=== PATIENT | male | born 1970 | race Caucasian/White ===

== ENCOUNTER 2019-11-11 07:20 | Inpatient (IN) | payer BC ==
[2019-11-11] MEDS ORDERED: NALOXONE 0.4 MG/ML 1 ML VIAL IV PRN (07:26)
[2019-11-11 07:32] LABS: Glucose,Whole Blood 244 mg/dL (75-99)
--- NOTE | 2019-11-11 07:33 | ED ---
General Adult HPI - General Chief complaint: Chest Pain Stated complaint: stemi Time Seen by Provider: 11/11/19 07:25 Source: patient, EMS, RN notes reviewed, old records reviewed Mode of arrival: EMS Limitations: no limitations - History of Present Illness Initial comments: 49-year-old male history of hypertension presenting for evaluation of chest inez n. Patient was at work this morning, he developed central chest pressure that radiated into his left arm. Associated dyspnea, diaphoresis and nausea. Patient was transported by EMS given aspirin and nitroglycerin prior to arrival. Patient has no previous history of CAD. He states that yesterday he did have an episode of chest pressure that lasted only a few minutes and resolved with rest. - Related Data Allergies Allergy/AdvReac Type Severity Reaction Status Date / Time No Known Allergies Allergy Verified 11/11/19 07:21 Review of Systems ROS Statement: Those systems with pertinent positive or pertinent negative responses have been documented in the HPI. ROS Other: All systems not noted in ROS Statement are negative. Past Medical History Past Medical History: Hypertension History of Any Multi-Drug Resistant Organisms: None Reported Past Surgical History: No Surgical Hx Reported Past Psychological History: No Psychological Hx Reported Smoking Status: Current every day smoker Past Alcohol Use History: None Reported Past Drug Use History: Marijuana General Exam Limitations: no limitations General appearance: alert, anxious Head exam: Present: atraumatic, normocephalic Eye exam: Present: normal appearance, PERRL ENT exam: Present: normal exam Neck exam: Present: normal inspection. Absent: tenderness, meningismus Respiratory exam: Present: normal lung sounds bilaterally. Absent: respiratory distress, wheezes Cardiovascular Exam: Present: regular rate, normal rhythm GI/Abdominal exam: Present: soft. Absent: distended, tenderness, guarding Extremities exam: Present: normal inspection, other (Distal pulses intact) Back exam: Present: normal inspection, full ROM Neurological exam: Present: alert, oriented X3, CN II-XII intact. Absent: motor sensory deficit Psychiatric exam: Present: normal affect, normal mood Skin exam: Present: warm, intact, diaphoretic. Absent: cyanosis Course Vital Signs 11/11/19 07:21 Temperature 98.6 F Pulse Rate 80 Respiratory 18 Rate Blood Pressure 188/102 O2 Sat by Pulse 93 L Oximetry EKG Findings - EKG Comments: EKG Findings:: EKG: Normal sinus rhythm, ST segment elevation in lead 3 and aVF, ST segment depression in aVL, rate of 80, CO interval 164, QRS duration 108, QTC 500, ST segment elevated NE Medical Decision Making - Medical Decision Making 49-year-old male with typical chest pain, EKG showing ST segment elevation in the inferior leads with reciprocal change. clinical genetics laboratory chief is activated. Case is discussed with Dr. Haq, Dr. Will, and Dr. Valero. Patient given aspirin and nitroglycerin by EMS, further nitroglycerin will be held, patient given heparin and statin in the emergency department. He is taken urgently to the [facility]. Chest x-ray pending, laboratory testing pending. Disposition Clinical Impression: ST elevation myocardial infarction (STEMI) Disposition: ADMITTED IP TO THIS HOSP Condition: Serious Is patient prescribed a controlled substance at d/c from ED?: No Referrals: Raj Valero MD [Primary Care Provider] - 1-2 days Decision to Admit Reason: Admit from EC Decision Date: 11/11/19 Decision Time: 07:33
[2019-11-11 07:37] LABS: Basophils # (A) 0.1 k/uL (0-0.2); Basophils % (A) 1 %; Eosinophils # (A) 0.5 k/uL (0-0.7); Eosinophils % (A) 4 %; HCT 51.2 % (39.0-53.0); HGB 16.6 gm/dL (13.0-17.5); Lymphocytes # (A) 2.5 k/uL (1.0-4.8); Lymphocytes % (A) 21 %; MCH 29.3 pg (25.0-35.0); MCHC 32.4 g/dL (31.0-37.0); MCV 90.3 fL (80.0-100.0); Monocytes # (A) 0.4 k/uL (0-1.0); Monocytes % (A) 4 %; Neutrophils # (A) 8.1 k/uL (1.3-7.7); Neutrophils % (A) 69 %; Platelet Count 285 k/uL (150-450); RBC 5.67 m/uL (4.30-5.90); RDW 13.6 % (11.5-15.5); WBC 11.7 k/uL (3.8-10.6)
[2019-11-11] MEDS ORDERED: IV FLUID CONTINUATION 950 ML IV ONE (07:39)
[2019-11-11 07:45] LABS: ALT 19 U/L (4-49); AST 22 U/L (17-59); African American GFR (CKD) >90 (>60 ml/min/1.73 sqM); Alkaline Phosphatase 106 U/L (38-126); Anion Gap 10 mmol/L; Blood Urea Nitrogen 10 mg/dL (9-20); Calcium 9.1 mg/dL (8.4-10.2); Carbon Dioxide 23 mmol/L (22-30); Chloride 105 mmol/L (98-107); Glucose 239 mg/dL (74-99); Non-African American GFR(CKD) >90 (>60 ml/min/1.73 sqM); Potassium 3.9 mmol/L (3.5-5.1); Sodium 138 mmol/L (137-145); Total Bilirubin 0.5 mg/dL (0.2-1.3); Total Protein 7.3 g/dL (6.3-8.2)
--- NOTE | 2019-11-11 07:46 | XR ---
EXAMINATION TYPE: XR chest 1V portable DATE OF EXAM: 11/11/2019 CLINICAL HISTORY: Chest pain and left arm numbness. TECHNIQUE: Single portable Frontal view of the chest is obtained. COMPARISON: chest x-ray September 02, 2012. FINDINGS: Current study is slightly suboptimal as does not include entire right lung base. There is some chronic parenchymal changes bilaterally without suspicious focal air space opacity, pleural effu jose, or pneumothorax seen. The cardiac silhouette size is mildly enlarged. The osseous structures are intact. Overlying EKG leads are redemonstrated. IMPRESSION: Chronic changes and mild cardiomegaly without new acute pulmonary process.
[2019-11-11 07:48] LABS: INR 0.9 (<1.2); Partial Thromboplastin Time 23.1 sec (22.0-30.0); Prothrombin Time 9.6 sec (9.0-12.0)
[2019-11-11] MEDS ORDERED: fentaNYL (PF) 50 MCG/ML 2 ML AMP IV ONE (07:52)
[2019-11-11] MEDS: MIDAZOLAM 2 MG/2 ML VIAL IV ONE ×2 (07:52→08:49)
[2019-11-11] MEDS ORDERED: LIDOCAINE 1% INJ 10MG/ML (20 ML MDV) SQ ONE (07:53)
[2019-11-11] MEDS ORDERED: NITROGLYCERIN OINT 1 INCH/GM PACKET TOPICAL ONE (07:57)
[2019-11-11] MEDS ORDERED: BIVALIRUDIN BOLUS 250 MG/50 ML IV ONE (08:01)
[2019-11-11] MEDS ORDERED: TICAGRELOR 90 MG TAB PO ONE (08:02)
[2019-11-11] MEDS ORDERED: BIVALIRUDIN 250 MG in SODIUM CHLORIDE 0.9% 50 ML IV ONE ×2 (08:02→08:29)
[2019-11-11 08:09] LABS: Creatine Kinase MB 1.3 ng/mL (0.0-2.4); Troponin I 0.017 ng/mL (0.000-0.034)
[2019-11-11] MEDS ORDERED: IOPAMIDOL-370 125ML BTL INJ ONE (08:13)
[2019-11-11] MEDS ORDERED: METOPROLOL TARTRATE 5 MG/5 ML VIAL IVP ONE ×2 (08:14→08:56)
[2019-11-11] MEDS ORDERED: HEPARIN SODIUM,PORCINE 5,000 UNIT/ML 1 ML VIAL IV STA (08:19)
[2019-11-11] MEDS ORDERED: ATORVASTATIN 80 MG TAB PO STA (08:19)
[2019-11-11] MEDS ORDERED: NITROGLYCERIN 1000MCG/10ML SYRINGE INTRACORON ONE (08:49)
[2019-11-11] MEDS ORDERED: IOPAMIDOL-370 100ML BTL INJ ONE (08:59)
[2019-11-11] MEDS ORDERED: ATROPINE SULFATE 0.1 MG/ML 10ML SYRINGE IV PRN (09:23)
[2019-11-11] MEDS ORDERED: MAG HYDROX/AL HYDROX/SIMETH 30 ML CUP PO PRN (09:23)
[2019-11-11] MEDS ORDERED: NITROGLYCERIN SL TABS 0.4 MG TAB SUBLINGUAL PRN (09:23)
[2019-11-11] MEDS ORDERED: RX INFO: IV CONTRAST WAS GIVEN 1 EACH MISC MISCELLANE PRN (09:23)
[2019-11-11] MEDS ORDERED: ZOLPIDEM 5 MG TAB PO PRN (09:23)
[2019-11-11] MEDS ORDERED: SODIUM CHLORIDE 0.9% 1,000 ML IV SCH (09:30)
[2019-11-11 09:42] LABS: Glucose,Whole Blood 206 mg/dL (75-99)
[2019-11-11] MEDS: METOPROLOL TARTRATE 25 MG TAB PO SCH ×2 (10:23→20:06)
--- NOTE | 2019-11-11 12:29 | CONS ---
CONSULTATION CHIEF COMPLAINT: Chest pain. Jose is a 49-year-old gentleman with history of hypertension and family history of premature coronary artery disease, who presents to hospital complaining of chest pain. Chest discomfort started around 6:30 this morning when he went to work . Describes it as mild to moderate pressure with bilateral arm pain. He had chest pain and arm pain yesterday that resolved spontaneously. 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 EKG shows ST-segment elevation in the inferior leads with T-wave inversion in 1 and aVL. PAST MEDICAL HISTORY: Significant for hypertension, he takes antihypertensive I do not have a list. ALLERGIES: None. FAMILY HISTORY: Significant for coronary artery disease. SOCIAL HISTORY: Negative for smoking. He smokes marijuana. REVIEW OF SYSTEMS: HEENT is unremarkable. Cardiac as above. Respiratory as described above. GI negative. Genitourinary negative. Musculoskeletal negative. Endocrine and blood: Negative. 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 Rest of the system review is not relevant. EXAM: Is comfortable at rest vital signs is stable. Head negative. carotid upstroke is normal. There is no bruit. Chest exam reveals good air entry bilaterally, heart exam reveals first and second heart sounds. No gallop. No murmur. No rub. Abdomen is soft. Exam of extremities did not reveal any edema peripheral pulses were felt. Labs are pending at this time. ASSESSMENT: Acute inferior wall myocardial infarction. PLAN: Patient will undergo emergent cardiac catheterization with a view to performing angioplasty. MMODL / IJN: [id number] /
--- NOTE | 2019-11-11 13:11 | PTCA ---
PERCUTANEOUSTRANS CORORONARY ANGIOGRAPHY Mr. Andre is a 49-year-old male with history of hypertension, chronic tobacco use, who presented with symptoms of chest discomfort and ST elevation inferiorly, underwent cardiac catheterization by Dr. Haq, was found to have a subtotally occluded mid RCA that is codominant and small in caliber. In view of that, recommendation was made regarding angioplasty and stenting. The procedures, risks, and complications were discussed with the patient who is in full understanding and agreement. PROCEDURE DETAILS: A 6-Liberian FR4 guiding catheter was introduced into the system. After cannulating stenting the right coronary ostium, multiple attempts to cross the lesion using a 0.014 balanced medium weight J-wire, 0.014 Whisper J-wire and a 0.014 run-through wire with the use of a super cross straight catheter were unsuccessful. The lesion is quite tortuous and appears to be a chronic lesion. At that time, the guiding catheter and the wire were removed and a 6-Liberian FL 4.5 guiding catheter introduced into the system. After cannulating the left circumflex, a 0.014 balanced medium weight J-wire was advanced distally and 4.0 x 23 mm Xience Paula stent was deployed. It was dilated at 16 atmospheres. Following that, a 4.0 x 15 mm NC Emerge balloon was advanced. 1 inflation at 14 atmospheres was done. After the last inflation, after appropriate wait, the balloon and the guidewire were withdrawn back in the guiding catheter. Images were obtained and repeated. Those images reveal stable successful stenting. At that point, the guiding catheter, the balloon and the guidewire removed. The sheath was sutured in place. The patient was returned to his room in stable condition. Of note, the patient had no chest discomfort or arm discomfort at the end of the procedure. He received Angiomax per protocol as well as oral loading dose of Brilinta. RESULTS: 1. Successful stenting of the distal left circumflex with reduction of stenosis from 70% to 0%. 2. Inability to recannulize a subtotally occluded right coronary artery that could be a chronic lesion. RECOMMENDATIONS: Patient will be continued on aspirin, Brilinta, beta blockers, timothy inhibitors and statin. If he remains in atrial fibrillation, the Brilinta will be switched to Plavix. Of note, the patient had significant peripheral vascular disease in the common femoral artery. Duration of procedure is 77 minutes. MMODL / IJN: [id number] / MTDD
--- NOTE | 2019-11-11 14:44 | CC ---
CARDIAC CATHETERIZATION REPORT INDICATION: Acute inferior wall myocardial infarction. PROCEDURE NOTE: After obtaining informed consent, left heart catheterization and coronary angiogram were performed via the right femoral artery using standard Aaron catheters. Patient tolerated the procedure well without any obvious immediate complications. The patient received moderate conscious sedation. Total sedation time was 8 minutes. FINDINGS: 1. Central aortic pressure is 160/70 mm. 2. Left ventriculogram has not been performed. ANGIOGRAPHIC DATA: LEFT MAIN CORONARY ARTERY: Left main coronary artery is a short vessel. It trifurcates into ramus intermedius, LAD and circumflex coronary artery. LAD and the ramus intermedius are free of significant disease. CIRCUMFLEX CORONARY ARTERY: The circumflex coronary artery has a distal 70% stenosis., RIGHT CORONARY ARTERY: Right coronary artery is a codominant vessel and is subtotally occluded in its midportion. CONCLUSIONS: Two vessel coronary artery disease as described above. The right coronary artery is a vessel responsible for the myocardial infarction. PLAN: Patient will undergo emergent angioplasty of the same by the on-call vice president of advertising. MMODL / IJN: [id number] /
[2019-11-11] MEDS ORDERED: LISINOPRIL 5 MG TAB PO SCH (17:30)
[2019-11-11] MEDS: TICAGRELOR 90 MG TAB PO SCH (20:06)
[2019-11-11] MEDS: ATORVASTATIN 80 MG TAB PO SCH (20:06)
[2019-11-12 04:11] LABS: Hemoglobin A1C 7.6 % (4.0-6.0)
[2019-11-12 05:11] LABS: Basophils # (A) 0.1 k/uL (0-0.2); Basophils % (A) 1 %; Eosinophils # (A) 0.3 k/uL (0-0.7); Eosinophils % (A) 2 %; HCT 43.9 % (39.0-53.0); HGB 14.4 gm/dL (13.0-17.5); Lymphocytes # (A) 2.8 k/uL (1.0-4.8); Lymphocytes % (A) 21 %; MCH 29.9 pg (25.0-35.0); MCHC 32.9 g/dL (31.0-37.0); Mean Platelet Volume 7.1; Monocytes # (A) 0.5 k/uL (0-1.0); Monocytes % (A) 4 %; Neutrophils # (A) 9.5 k/uL (1.3-7.7); Neutrophils % (A) 72 %; Platelet Count 260 k/uL (150-450); RBC 4.83 m/uL (4.30-5.90); RDW 13.6 % (11.5-15.5); WBC 13.3 k/uL (3.8-10.6)
[2019-11-12 05:22] LABS: African American GFR (CKD) >90 (>60 ml/min/1.73 sqM); Anion Gap 5 mmol/L; Blood Urea Nitrogen 11 mg/dL (9-20); Calcium 8.3 mg/dL (8.4-10.2); Carbon Dioxide 24 mmol/L (22-30); Chloride 108 mmol/L (98-107); Cholesterol 135 mg/dL (<200); Glucose 144 mg/dL (74-99); HDL Cholesterol 28 mg/dL (40-60); LDL Cholesterol,Calculated 88 mg/dL (0-99); Non-African American GFR(CKD) >90 (>60 ml/min/1.73 sqM); Sodium 137 mmol/L (137-145); Triglycerides 97 mg/dL (<150)
--- NOTE | 2019-11-12 08:41 | HP ---
HISTORY AND PHYSICAL DATE OF SERVICE: 11/11/2019 A 49-year-old white male came in today with chest pain, worsening at work to the point he almost passed out. EMS was called, brought to the hospital. He continues to smoke multiple cigarettes. He is obese. He has hypertension, controlled. He was found to have possible ST elevation in the inferior leads and T-wave inversion in 1 aVL. He had a stent placed in the RCA. He is in ICU stable at this time. Smoking cessation counseling. Weight loss counseling given. PAST MEDICAL HISTORY: Hypertension. ALLERGIES: None. FAMILY HISTORY: Heart disease. Smokes marijuana. REVIEW OF SYSTEMS: Fourteen-point review of systems negative except for mentioned in HPI. Vital signs reviewed. CARDIOVASCULAR S1-S2. LUNGS mild wheeze. ENDOCRINE: BMI is over 40. HEMATOLOGY: Negative Homans. PSYCH: Fair mood and affect. NEUROLOGIC: Alert and orient x3. ASSESSMENT AND PLAN: 1. Status post STEMI, RCA, PTCA done to the right coronary artery. He continues to improve. 2. Smoking cessation. 3. Hypertension. 4. Medications, statins, Plavix and aspirin. 5. Possible discharge home tomorrow. ICU time 30 minutes. MMODL / IJN: [id number] /
[2019-11-12] MEDS ORDERED: LISINOPRIL 5 MG TAB PO SCH (09:00)
[2019-11-12] MEDS: ASPIRIN 81 MG PO SCH (09:03)
[2019-11-12] MEDS: METOPROLOL TARTRATE 25 MG TAB PO SCH ×2 (09:03→21:05)
[2019-11-12] MEDS: TICAGRELOR 90 MG TAB PO SCH ×2 (09:03→21:06)
[2019-11-12] MEDS: amLODIPine 10 MG TAB PO SCH (09:03)
[2019-11-12] MEDS: LISINOPRIL 10 MG TAB PO SCH ×2 (09:03→21:05)
--- NOTE | 2019-11-12 09:33 | ECHOF ---
Referral Reason:mi MEASUREMENTS -------- HEIGHT: 180.3 cm WEIGHT: 142.9 kg BP: IVSd: 1.7 cm (0.6 - 1.1) LVIDd: 5.3 cm (3.9 - 5.3) LVPWd: 1.6 cm (0.6 - 1.1) IVSs: 2.4 cm LVIDs: 3.9 cm LVPWs: 2.1 cm Ao Diam: 3.8 cm (2.0 - 3.7) AV Cusp: 2.3 cm (1.5 - 2.6) LA Diam: 3.2 cm (2.7 - 3.8) MV EXCURSION: 19.089 mm (> 18.000) MV EF SLOPE: 84 mm/s (70 - 150) EPSS: 2.0 cm MV E Mani: 0.59 m/s MV DecT: 197 ms MV A Mani: 0.68 m/s MV E/A Ratio: 0.86 RAP: 5.00 mmHg RVSP: 10.41 mmHg FINDINGS -------- Sinus rhythm. This was a technically difficult study with suboptimal views. The left ventricular size is normal. There is moderate concentric left ventricular hypertrophy. O verall left ventricular systolic function is low-normal with, an EF between 50 - 55 %. The right ventricle is normal in size. The left atrial size is normal. The right atrial size is normal. 5.0mg of Lumason was utilized for enhancement of images The aortic valve is trileaflet and appears structurally normal. The mitral valve is normal. There is trace mitral regurgitation. The tricuspid valve appears structurally normal. Trace tricuspid regurgitation present. Right norberto tricular systolic pressure is normal at < 35 mmHg. There is no pulmonic regurgitation present. CONCLUSIONS -------- 1. Sinus rhythm. 2. This was a technically difficult study with suboptimal views. 3. The left ventricular size is normal. 4. There is moderate concentric left ventricular hypertrophy. 5. Overall left ventricular systolic function is low-normal with, an EF between 50 - 55 %. 6. The right ventricle is normal in size. 7. The left atrial size is normal. 8. The right atrial size is normal. 9. 5.0mg of Lumason was utilized for enhancement of images 10. The aortic valve is trileaflet and appears structurally normal. 11. The mitral valve is normal. 12. There is trace mitral regurgitation. 13. The tricuspid valve appears structurally normal. 14. Trace tricuspid regurgitation present. 15. Right ventricular systolic pressure is normal at < 35 mmHg. 16. There is no pulmonic regurgitation present. INFORMATION SECURITY: Iris Claudio RDCS
--- NOTE | 2019-11-12 10:58 | PN ---
PROGRESS NOTE Wesley is a 49-year-old gentleman who is admitted to hospital with acute myocardial infarction, underwent cardiac catheterization, emergent angioplasty of the circumflex coronary artery. We were unsuccessful in doing angioplasty of the subtotally occluded mid RCA. Echocardiogram on him shows normal LV systolic function with an ejection fraction of 50-55 percent. The peak troponin was 6.2. This morning, patient is doing well and is free of symptoms. He is afebrile. Heart rate is 78 beats per minute. Blood pressure is elevated at 169/109, respiratory rate is 18. Chest exam reveals good air entry bilaterally. Heart exam reveals first and second heart sounds. No gallop. Abdomen is soft. Exam of extremities did not reveal any edema. Peripheral pulses are felt. ASSESSMENT: 1. Acute myocardial infarction status post catheterization and angioplasty. 2. Severe uncontrolled hypertension. PLAN: I am resuming Norvasc 10 mg daily. Continue the Lopressor, aspirin, Lipitor, and Brilinta. The patient had a transient episode of atrial fibrillation yesterday. I am also increasing the dose of Zestril to 10 b.i.d. With all this, if the blood pressure is not better controlled, I am going to add hydralazine. MMODL / IJN: [id number] /
[2019-11-12] MEDS: hydrALAZINE HCL 25 MG TAB PO SCH ×2 (15:52→21:05)
[2019-11-12] MEDS: ATORVASTATIN 80 MG TAB PO SCH (21:05)
--- NOTE | 2019-11-13 02:49 | PN ---
PROGRESS NOTE A 49-year-old white male status post CABG, STEMI with PTCA right coronary artery. Blood pressure hypertension acceleration with increase medications has been ordered. Continue on Plavix and aspirin. Prognosis guarded. CARDIOVASCULAR: S1, S2. LUNGS: Clear. GI: Soft. HEMATOLOGY: Negative Homans. PSYCH: Fair mood and affect. ASSESSMENT: 1. ST-elevation myocardial infarction. 2. Status post PTCA right coronary artery. 3. Hypertension. 4. Dyslipidemia. PLAN: Control blood pressure and discharge home tomorrow. Continue on Effient, aspirin, simvastatin, beta blockers. ICU TIME: 20 minutes. MMODL / IJN: [id number] /
[2019-11-13 08:26] VITALS: RESP 16
[2019-11-13] MEDS: TICAGRELOR 90 MG TAB PO SCH (09:37)
[2019-11-13] MEDS: amLODIPine 10 MG TAB PO SCH (09:37)
[2019-11-13] MEDS: LISINOPRIL 10 MG TAB PO SCH (09:37)
[2019-11-13] MEDS: METOPROLOL TARTRATE 25 MG TAB PO SCH (09:37)
[2019-11-13] MEDS: hydrALAZINE HCL 25 MG TAB PO SCH (09:37)
[2019-11-13] MEDS: ASPIRIN 81 MG PO SCH (09:37)
--- NOTE | 2019-11-13 11:50 | P.PN ---
Subjective Progress Note Date: 11/13/19 This is a 49-year-old gentleman with history of hypertension, family history of premature coronary artery disease who presented to the hospital with an ST elevation NV, status post stenting of the circumflex artery. Labor unable to recannulized a subtotally occluded right coronary artery which appeared to be chronic. Patient was seen and examined this morning, denied any chest discomfort in his breathing is stable. Echocardiogram with Doppler study was performed which revealed an ejection fraction of 50-55%. Blood pressure 168/80 with a heart rate in the 80s, 99% on room air. White blood cell count 13.3, hemoglobin 14, platelet count 260. Sodium 137, potassium 4.0, BUN 11, creatinin e 0.7. Troponin peaked at 6.2. Objective - Vital Signs Vital signs: Vital Signs Temp 98.1 F 11/13/19 08:00 Pulse 80 11/13/19 08:00 Resp 16 11/13/19 08:00 BP 168/83 11/13/19 08:00 Pulse Ox 99 11/13/19 08:00 Intake & Output 11/12/19 11/13/19 11/13/19 18:59 06:59 18:59 Intake Total 240 Output Total 0 Balance 0 240 Weight 146 kg 140.8 kg Intake: Oral 240 Output: Urine 0 Other: Voiding Method Toilet Toilet # Voids 1 2 # Bowel Movements 1 ABP, PAP, CO, CI - Last Documented Arterial Blood Pressure 167/88 - Exam PHYSICAL EXAMINATION: GENERAL: 49-year-old gentleman in no acute distress at the time of my examination HEENT: Head is atraumatic, normocephalic. Pupils equal, round. Sclera anicteric. Conjunctiva are clear. Mucous membranes of the mouth are moist. Neck is supple. There is no elevated jugular venous pressure. No carotid bruit is heard. HEART EXAMINATION: Heart S1, S2 normal. No murmur or gallop heard. CHEST EXAMINATION: Lungs are clear to auscultation and precussion. No chest wall tenderness is noted on palpation or with deep breathing. ABDOMEN: Soft, nontender. Bowel sounds are heard. No organomegaly noted. EXTREMITIES: 2+ peripheral pulses with no evidence of peripheral edema and no calf tenderness noted. NEUROLOGIC patient is awake, alert and oriented 3 . - Labs CBC & Chem 7: 11/12/19 04:46 11/12/19 04:46 Assessment and Plan Plan: Assessment and plan #[address] elevation myocardial infarction, status post angioplasty and stenting of the circumflex artery, unable to recannulate the right coronary artery which appeared to be subtotally occluded, chronic #2 family history of premature coronary artery disease #3 hypertension #4 hyperlipidemia Plan We will increase the dose of beta prakash to 50 mg one tablet by mouth twice a day. Patient may be able to be discharged home today from our perspective, he will go home on Norvasc 10 mg daily, aspirin 1 mg daily, Lipitor 80 mg daily, hydralazine 25 mg one tablet by mouth 3 times a day, Cipro 10 mg twice a day, Glucophage, metoprolol as mentioned 50 mg one tablet by mouth twice a day, Brilinta 90 mg one tablet by mouth twice a day and sublingual nitroglycerin as needed for chest pain. He will have a follow-up appointment to see Dr. Haq in the office post discharge. DNP note has been reviewed, I agree with a documented findings and plan of care. Patient was seen and examined.
[2019-11-13 11:53] LABS: Glucose,Whole Blood 116 mg/dL (75-99)
[2019-11-13 12:05] VITALS: BP 156/92; PULSE 69; TEMP 98
[2019-11-13] MEDS ORDERED: INSULIN ASPART (NovoLOG) 100 UNIT/ML VIAL SQ SCH (12:30)
[2019-11-13 13:54] VITALS: BMI 43.2
[2019-11-13] MEDS ORDERED: METOPROLOL TARTRATE 50 MG TAB PO SCH (21:00)
[2019-11-14] MEDS ORDERED: metFORMIN 500 MG TAB PO SCH (07:30)
--- NOTE | 2019-11-14 15:44 | P.DS ---
Providers Date of admission: 11/11/19 07:26 Expected date of discharge: 11/13/19 Attending physician: Raj Valero Consults: 11/11/19 07:26 Consult Physician Stat Consulting Provider: Horacio Haq Consult Reason/Comments: STEMI Do you want consulting provider notified?: Already Contacted 11/11/19 09:23 Consult Physician Routine Consulting Provider: [facility] Consult Reason/Comments: Post Interventional patient Do you want consulting provider notified?: Already Contacted Primary care physician: Raj Valero [facility] Course: Final diagnoses Acute inferior STEMI, status post angioplasty with stenting of the circumflex, unable to be cannulate the mid RCA-subtotally occluded. Hypertension Hyperlipidemia Hospital course: This a 49-year-old gentleman admitted with acute inferior STEMI, underwent emergent angioplasty, stenting of the circumflex, RCA subtotally occluded in the midportion. Antihypertensives adjusted. Significant clinical improvement. Cleared by cardiology for discharge. Patient is being discharged home in a stable condition with guarded prognosis. BNP statement Patient Condition at Discharge: Stable Plan - Discharge Summary Discharge Rx Participant: No New Discharge Prescriptions: New hydrALAZINE HCL [Apresoline] 25 mg PO TID #90 tab Ticagrelor [Brilinta] 90 mg PO BID #60 tab metFORMIN HCL [Glucophage] 500 mg PO BID-W/MEALS #60 tab Atorvastatin [Lipitor] 80 mg PO HS #30 tab Nitroglycerin Sl Tabs [Nitrostat] 0.4 mg SUBLINGUAL Q5M PRN #100 tab PRN Reason: Chest Pain Continue Albuterol Sulfate [Proair Hfa] 2 puff INHALATION RT-QID PRN PRN Reason: Shortness Of Breath Aspirin EC [Ecotrin Low Dose] 81 mg PO DAILY amLODIPine [Norvasc] 10 mg PO DAILY Changed Lisinopril 10 mg PO BID #0 Metoprolol Tartrate [Lopressor] 50 mg PO BID #120 tab Discontinued Atorvastatin Calcium [Lipitor] 40 mg PO HS Discharge Medication List Albuterol Sulfate [Proair Hfa] 2 puff INHALATION RT-QID PRN 11/11/19 [History] Aspirin EC [Ecotrin Low Dose] 81 mg PO DAILY 11/11/19 [History] amLODIPine [Norvasc] 10 mg PO DAILY 11/11/19 [History] Atorvastatin [Lipitor] 80 mg PO HS #30 tab 11/13/19 [Rx] Lisinopril 10 mg PO BID #0 11/13/19 [Rx] Metoprolol Tartrate [Lopressor] 50 mg PO BID #120 tab 11/13/19 [Rx] Nitroglycerin Sl Tabs [Nitrostat] 0.4 mg SUBLINGUAL Q5M PRN #100 tab 11/13/19 [Rx] Ticagrelor [Brilinta] 90 mg PO BID #60 tab 11/13/19 [Rx] hydrALAZINE HCL [Apresoline] 25 mg PO TID #90 tab 11/13/19 [Rx] metFORMIN HCL [Glucophage] 500 mg PO BID-W/MEALS #60 tab 11/13/19 [Rx] Follow up Appointment(s)/Referral(s): Raj Valero MD [Primary Care Provider] - 11/14/19 10:45 am Horacio Haq MD [STAFF PHYSICIAN] - 11/21/19 1:00 pm Ambulatory/Diagnostic Orders: Complete Blood Count w/diff [LAB.AMB] Time Frame: 3 Days, Location: None Selected Patient Instructions/Handouts: Heart Attack (DC), Diabetes Insipidus (DC) Activity/Diet/Wound Care/Special Instructions: Glucometer script sent to [facility] education classes at PCPs office Diet: Consistent carb Discharge Disposition: HOME SELF-CARE
== END 2019-11-13 14:41 | disposition home or self-care (01) | DRG 247 ==
LOC: EC 07:20 → 2SICU 07:26 → 3SCARD 11-12 17:28
PROVIDERS: ADMIT Family Medicine; ATTEND Family Medicine
PROC: 027034Z Dilation of Coronary Artery, One Artery with Drug-eluting Intraluminal Device, Percutaneous Approach (ICD-10-PCS; principal; 2019-11-11 13:55)
PROC: B2111ZZ Fluoroscopy of Multiple Coronary Arteries using Low Osmolar Contrast (ICD-10-PCS; 2019-11-11 13:55)
PROC: 4A023N7 Measurement of Cardiac Sampling and Pressure, Left Heart, Percutaneous Approach (ICD-10-PCS; 2019-11-11 13:55)
DX: I21.11 ST elevation (STEMI) myocardial infarction involving right coronary artery (principal); Z68.41 Body mass index [BMI] 40.0-44.9, adult; Z11.59 Encounter for screening for other viral diseases; I48.91 Unspecified atrial fibrillation; I25.10 Atherosclerotic heart disease of native coronary artery without angina pectoris; I10 Essential (primary) hypertension; F17.210 Nicotine dependence, cigarettes, uncomplicated; E66.9 Obesity, unspecified; E78.5 Hyperlipidemia, unspecified; Z71.3 Dietary counseling and surveillance; Z79.82 Long term (current) use of aspirin; Z79.899 Other long term (current) drug therapy; Z71.6 Tobacco abuse counseling; Z82.49 Family history of ischemic heart disease and other diseases of the circulatory system
CPT/HCPCS: 71045; 80048; 80053; 80061; 82550; 82553; 83036; 84484; 85025; 85347; 85610; 85730; 93005; 93306; 93454; 99285

== ENCOUNTER → 2020-07-03 | Outpatient (CLI) | payer BC | END | disposition home or self-care (01) | LOC: LABWHC1 14:50 | PROVIDERS: ATTEND Emergency Medicine | DX: Z20.822 Contact with and (suspected) exposure to COVID-19 (principal) | CPT/HCPCS: U0003; C9803 ==

== ENCOUNTER 2020-09-02 13:55 | Emergency (ER) | payer BC ==
[2020-09-02 14:05] VITALS: RESP 18; TEMP 98
[2020-09-02] MEDS ORDERED: ONDANSETRON 4 MG/2 ML VIAL IVP STA (14:28)
[2020-09-02] MEDS ORDERED: MECLIZINE 25 MG TAB PO STA (14:39)
--- NOTE | 2020-09-02 14:45 | ED ---
General Adult HPI - General Chief complaint: Dizziness Stated complaint: elevated BP Time Seen by Provider: 09/02/20 14:00 Source: patient, EMS, RN notes reviewed, old records reviewed Mode of arrival: EMS Limitations: no limitations - History of Present Illness Initial comments: This is a 50-year-old male who presents emergency Department complaining of dizziness per patient states the breathing seems to be moving around. 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 Patient denies any headache. Patient denies any similar symptoms in the past. Patient denies any tinnitus patient denies any changes in hearing. Patient denies any palpitations chest pain difficult breathing shortness of breath. Patient denies any abdominal pain. Patient states he just feels very nauseated and head movement causes increased dizziness. - Related Data Home Medications Medication Instructions Recorded Confirmed Albuterol Sulfate [Proair Hfa] 2 puff INHALATION RT-QID PRN 11/11/19 09/02/20 Metoprolol Tartrate [Lopressor] 50 mg PO BID 09/02/20 09/02/20 Semaglutide [Rybelsus] 14 mg PO DAILY 09/02/20 09/02/20 lisinopriL [Zestril] 40 mg PO DAILY 09/02/20 09/02/20 Previous Rx's Medication Instructions Recorded Atorvastatin [Lipitor] 80 mg PO HS #30 tab 11/13/19 Nitroglycerin Sl Tabs [Nitrostat] 0.4 mg SUBLINGUAL Q5M PRN #100 tab 11/13/19 Ticagrelor [Brilinta] 90 mg PO BID #60 tab 11/13/19 hydrALAZINE HCL [Apresoline] 25 mg PO TID #90 tab 11/13/19 metFORMIN HCL [Glucophage] 500 mg PO BID-W/MEALS #60 tab 11/13/19 Meclizine [Antivert] 25 mg PO TID #20 tab 09/02/20 Allergies Allergy/AdvReac Type Severity Reaction Status Date / Time No Known Allergies Allergy Verified 09/02/20 15:46 Review of Systems ROS Statement: Those systems with pertinent positive or pertinent negative responses have been documented in the HPI. ROS Other: All systems not noted in ROS Statement are negative. Past Medical History Past Medical History: Diabetes Mellitus, GERD/Reflux, Hyperlipidemia, Hypertension, Myocardial Infarction ([place]), Pneumonia Additional Past Medical History / Comment(s): Pt states May 2019 he was hospitalized at [facility] with pneumonia and fluid on his lungs-denies CHF, occasionall lower leg edema. [place] October, History of Any Multi-Drug Resistant Organisms: None Reported Past Surgical History: Heart Catheterization With Stent Additional Past Surgical History / Comment(s): 11/11/19 PCI with stent to circumflex. Past Anesthesia/Blood Transfusion Reactions: Unable to Obtain Additional Past Anesthesia/Blood Transfusion Reaction / Comment(s): Pt has never had general or spinal anesthesia. Date of Last Stent Placement:: 11/11/19 Past Psychological History: Anxiety Smoking Status: Current every day smoker Past Alcohol Use History: None Reported Past Drug Use History: Marijuana - Past Family History Mother Family Medical History: Congestive Heart Failure (CHF) Additional Family Medical History / Comment(s): Mother from CHF at the age of 64 yrs. Father Family Medical History: Dementia Additional Family Medical History / Comment(s): Father of dementia at the age of 72 yrs. General Exam - General Exam Comments Initial Comments: GENERAL: Patient is well-developed and well-nourished. Patient is nontoxic and well- hydrated and is in mild distress. ENT: Neck is soft and supple. No significant lymphadenopathy is noted. Oropharynx is clear. Moist mucous membranes. Neck has full range of motion without eliciting any pain. EYES: The sclera were anicteric and conjunctiva were pink and moist. Extraocular movements were intact and pupils were equal round and reactive to light. Patient had nystagmus when looking to the right Eyelids were unremarkable. PULMONARY: Unlabored respirations. Good breath sounds bilaterally. No audible rales rhonchi or wheezing was noted. CARDIOVASCULAR: There is a regular rate and rhythm without any murmurs gallops or rubs. ABDOMEN: Soft and nontender with normal bowel sounds. No palpable organomegaly was noted. SKIN: Skin is clear with no lesions or rashes and otherwise unremarkable. NEUROLOGIC: Patient is alert and oriented x3. Cranial nerves II through XII are grossly intact. Motor and sensory are also intact. Normal speech, volume and content. Symmetrical smile. Cerebellar exam grossly intact. MUSCULOSKELETAL: Normal extremities with adequate strength and full range of motion. No lower extremity swelling or edema. No calf tenderness. LYMPHATICS: No significant lymphadenopathy is noted PSYCHIATRIC: Normal psychiatric evaluation. Limitations: no limitations Course Vital Signs 09/02/20 09/02/20 09/02/20 14:00 14:24 14:35 Temperature 98 F Pulse Rate 61 60 Respiratory 18 18 18 Rate Blood Pressure 204/95 176/86 O2 Sat by Pulse 97 97 Oximetry Medical Decision Making - Medical Decision Making EKG shows normal sinus rhythm at 62 bpm NE interval 270 QRS is 104 QT interval 460 QTC is 466. EKG shows no ST segment elevation or depression Chest x-ray shows no acute abnormality. CAT scan of the brain shows no acute abnormality. Patient was given Antivert emergency department and his dizziness had improved. - Lab Data Result diagrams: 09/02/20 14:47 09/02/20 14:47 Lab Results 09/02/20 09/02/20 09/02/20 Range/Units 14:47 14:47 14:47 WBC 11.1 H (3.8-10.6) k/uL RBC 4.86 (4.30-5.90) m/uL Hgb 14.5 (13.0-17.5) gm/dL Hct 43.7 (39.0-53.0) % MCV 89.8 (80.0-100.0) fL MCH 29.9 (25.0-35.0) pg MCHC 33.2 (31.0-37.0) g/dL RDW 13.6 (11.5-15.5) % Plt Count 256 (150-450) k/uL MPV 6.9 Neutrophils % 65 % Lymphocytes % 27 % Monocytes % 4 % Eosinophils % 3 % Basophils % 1 % Neutrophils # 7.2 (1.3-7.7) k/uL Lymphocytes # 3.0 (1.0-4.8) k/uL Monocytes # 0.5 (0-1.0) k/uL Eosinophils # 0.3 (0-0.7) k/uL Basophils # 0.1 (0-0.2) k/uL PT 10.1 (9.0-12.0) sec INR 0.9 (<1.2) APTT 21.7 L (22.0-30.0) sec Sodium 137 (137-145) mmol/L Potassium 3.8 (3.5-5.1) mmol/L Chloride 107 (98-107) mmol/L Carbon Dioxide 24 (22-30) mmol/L Anion Gap 6 mmol/L BUN 17 (9-20) mg/dL Creatinine 0.82 (0.66-1.25) mg/dL Est GFR (CKD-EPI)AfAm >90 (>60 ml/min/1.73 sqM) Est GFR (CKD-EPI)NonAf >90 (>60 ml/min/1.73 sqM) Glucose 120 H (74-99) mg/dL Calcium 8.7 (8.4-10.2) mg/dL Magnesium 1.9 (1.6-2.3) mg/dL Total Bilirubin 0.6 (0.2-1.3) mg/dL AST 22 (17-59) U/L ALT 19 (4-49) U/L Alkaline Phosphatase 73 (38-126) U/L Troponin I (0.000-0.034) ng/mL Total Protein 6.2 L (6.3-8.2) g/dL Albumin 3.6 (3.5-5.0) g/dL 09/02/20 Range/Units 14:47 WBC (3.8-10.6) k/uL RBC (4.30-5.90) m/uL Hgb (13.0-17.5) gm/dL Hct (39.0-53.0) % MCV (80.0-100.0) fL MCH (25.0-35.0) pg MCHC (31.0-37.0) g/dL RDW (11.5-15.5) % Plt Count (150-450) k/uL MPV Neutrophils % % Lymphocytes % % Monocytes % % Eosinophils % % Basophils % % Neutrophils # (1.3-7.7) k/uL Lymphocytes # (1.0-4.8) k/uL Monocytes # (0-1.0) k/uL Eosinophils # (0-0.7) k/uL Basophils # (0-0.2) k/uL PT (9.0-12.0) sec INR (<1.2) APTT (22.0-30.0) sec Sodium (137-145) mmol/L Potassium (3.5-5.1) mmol/L Chloride (98-107) mmol/L Carbon Dioxide (22-30) mmol/L Anion Gap mmol/L BUN (9-20) mg/dL Creatinine (0.66-1.25) mg/dL Est GFR (CKD-EPI)AfAm (>60 ml/min/1.73 sqM) Est GFR (CKD-EPI)NonAf (>60 ml/min/1.73 sqM) Glucose (74-99) mg/dL Calcium (8.4-10.2) mg/dL Magnesium (1.6-2.3) mg/dL Total Bilirubin (0.2-1.3) mg/dL AST (17-59) U/L ALT (4-49) U/L Alkaline Phosphatase (38-126) U/L Troponin I <0.012 (0.000-0.034) ng/mL Total Protein (6.3-8.2) g/dL Albumin (3.5-5.0) g/dL Disposition Clinical Impression: Vertigo Disposition: HOME SELF-CARE Condition: Good Instructions (If sedation given, give patient instructions): Vertigo (ED) Prescriptions: Meclizine [Antivert] 25 mg PO TID #20 tab Is patient prescribed a controlled substance at d/c from ED?: No Referrals: Raj Valero MD [Primary Care Provider] - 1-2 days Time of Disposition: 16:02
[2020-09-02 14:55] LABS: Basophils # (A) 0.1 k/uL (0-0.2); Basophils % (A) 1 %; Eosinophils # (A) 0.3 k/uL (0-0.7); Eosinophils % (A) 3 %; HCT 43.7 % (39.0-53.0); HGB 14.5 gm/dL (13.0-17.5); Lymphocytes % (A) 27 %; MCH 29.9 pg (25.0-35.0); MCHC 33.2 g/dL (31.0-37.0); MCV 89.8 fL (80.0-100.0); Mean Platelet Volume 6.9; Monocytes # (A) 0.5 k/uL (0-1.0); Monocytes % (A) 4 %; Neutrophils # (A) 7.2 k/uL (1.3-7.7); Neutrophils % (A) 65 %; Platelet Count 256 k/uL (150-450); RBC 4.86 m/uL (4.30-5.90); RDW 13.6 % (11.5-15.5); WBC 11.1 k/uL (3.8-10.6)
[2020-09-02 15:11] LABS: INR 0.9 (<1.2); Prothrombin Time 10.1 sec (9.0-12.0)
[2020-09-02 15:17] LABS: Partial Thromboplastin Time 21.7 sec (22.0-30.0)
--- NOTE | 2020-09-02 15:27 | XR ---
EXAMINATION TYPE: XR chest 2V DATE OF EXAM: 09/02/2020 COMPARISON: Chest x-ray November 11, 2019 HISTORY: Dizziness and vomiting. Chest pain. TECHNIQUE: Frontal and lateral views of the chest are obtained. FINDINGS: There is no suspicious focal air space opacity, pleural effusion, or pneumothorax seen cur rently. The cardiac silhouette size is upper limits of normal. Overlying EKG leads. The osseous st ructures are intact. IMPRESSION: No acute cardiopulmonary process.
--- NOTE | 2020-09-02 15:35 | CT ---
EXAMINATION TYPE: CT brain wo con DATE OF EXAM: 09/02/2020 COMPARISON: None. HISTORY: dizziness, nausea, vomiting CT DLP: 2250.4 mGycm. Automated Exposure Control for Dose Reduction was Utilized. TECHNIQUE: CT scan of the head is performed without contrast. FINDINGS: There is no acute intracranial hemorrhage, mass effect, or midline shift identified. The ventricles and sulci are within normal limits in size. Nguyen-white matter differentiation maintained. The globes are intact and the visualized sinuses are clear. Suboptimal study as foramen magnum not i ncluded in its entirety to assess for possible Chiari malformation on this study. IMPRESSION: No acute intracranial hemorrhage or midline shift is seen.
[2020-09-02 15:36] LABS: ALT 19 U/L (4-49); AST 22 U/L (17-59); African American GFR (CKD) >90 (>60 ml/min/1.73 sqM); Albumin 3.6 g/dL (3.5-5.0); Alkaline Phosphatase 73 U/L (38-126); Anion Gap 6 mmol/L; Blood Urea Nitrogen 17 mg/dL (9-20); Calcium 8.7 mg/dL (8.4-10.2); Carbon Dioxide 24 mmol/L (22-30); Chloride 107 mmol/L (98-107); Glucose 120 mg/dL (74-99); Magnesium 1.9 mg/dL (1.6-2.3); Non-African American GFR(CKD) >90 (>60 ml/min/1.73 sqM); Potassium 3.8 mmol/L (3.5-5.1); Sodium 137 mmol/L (137-145); Total Bilirubin 0.6 mg/dL (0.2-1.3); Total Protein 6.2 g/dL (6.3-8.2)
[2020-09-02 17:18] VITALS: PULSE 59
[2020-09-02 17:19] VITALS: BP 178/86
== END 2020-09-02 16:47 | disposition home or self-care (01) ==
LOC: EC 13:55
DX: R42 Dizziness and giddiness (principal); E11.9 Type 2 diabetes mellitus without complications; K21.9 Gastro-esophageal reflux disease without esophagitis; E78.5 Hyperlipidemia, unspecified; I10 Essential (primary) hypertension; I25.2 Old myocardial infarction; F41.9 Anxiety disorder, unspecified; F17.200 Nicotine dependence, unspecified, uncomplicated; F12.90 Cannabis use, unspecified, uncomplicated
CPT/HCPCS: 36415; 93005; 80053; 83735; 84484; 85025; 85610; 85730; 71046; 70450; 99285; 96375; J2405; 96374

== ENCOUNTER → 2021-04-06 | Outpatient (CLI) | payer BC ==
--- NOTE | 2021-04-08 02:52 | CT ---
EXAMINATION TYPE: CT chest wo con DATE OF EXAM: 04/06/2021 COMPARISON: None HISTORY: Chest wall herniation CT DLP: 613 mGycm Automated exposure control for dose reduction was used. CONTRAST: CT scan of the chest is performed without intravenous contrast. FINDINGS: LUNGS: There is mild herniation of the right lower lobe laterally between the rib 8 and rib 9 intersp timothy. No associated displaced rib fracture. No acute focal airspace opacity, pleural effusion, or pneu mothorax. Calcified granuloma of the lingula. No pulmonary mass. The tracheobronchial tree is patent. MEDIASTINUM/SOFT TISSUES: No axillary, hilar, or mediastinal lymphadenopathy greater than 1 cm. Cardi ac size is normal. No pericardial effusion. There is calcified coronary artery disease. Thoracic aort a normal in caliber. UPPER ABDOMEN: No adrenal nodule. Hyperdense 1.6 cm cyst of the left renal upper pole likely represen ts hemorrhagic/proteinaceous cyst. OSSEOUS: No acute osseous abnormality. Asymmetric widening of the right rib 8 rib 9 interspace. No di splaced rib fracture. Degenerative changes of the spine. IMPRESSION: Asymmetric widening of the right rib 8 rib 9 interspace with mild pulmonary herniation laterally.
== END | disposition home or self-care (01) ==
LOC: RADCTMAIN 16:16
PROVIDERS: ATTEND Thoracic Surgery (Cardiothoracic Vascular Surgery)
DX: R22.2 Localized swelling, mass and lump, trunk (principal); K44.9 Diaphragmatic hernia without obstruction or gangrene
CPT/HCPCS: 71250

== ENCOUNTER → 2021-10-04 | Outpatient (CLI) | payer BC ==
--- NOTE | 2021-10-04 11:10 | CT ---
EXAMINATION TYPE: CT chest wo con DATE OF EXAM: 10/04/2021 COMPARISON: 04/06/2021 HISTORY: 51-year-old male N95.4, Acquired deformity of chest and rib cage (right seventh and eighth r ibs) TECHNIQUE: Contiguous axial scanning of the chest without IV contrast. Coronal and sagittal reconstru ctions performed. CT DLP: 527.2 mGycm Automated exposure control for dose reduction was used. FINDINGS: Heart normal size without pericardial effusion. Some type of tubular calcified area behind the root o f the aorta remains unchanged probable coronary calcifications. Additional coronary artery calcificat ions noted within the circumflex and LAD. Ectatic ascending aorta 3.9 cm. Conventional arch vessel branching anatomy. Stable 7 mm prevascular space lymph node and some minimal residual thymic tissue. No thoracic lymphad enopathy by CT size criteria. Stable calcified granuloma inferior lingula. No consolidation or pleural effusion. Redemonstrated asymmetric widening of the lateral right eighth intercostal space measuring 9.4 cm AP x 4.7 cm craniocaudal. This is in comparison to 8.6 x 4.3 cm on 04/06/2021. Mild bulging of the lung tissue by 1.1 cm through the widening. Visualized upper abdomen shows prominent ingested debris distending the stomach. Indeterminate medial left upper pole renal lesion measuring 1.7 cm versus 1.6 cm on 04/06/2021. Suspect a hemorrhagic cys t. Small hilar splenule. Bones: Mild degenerative disc disease and anterior spondylosis mid and lower thoracic spine. Some pos terior disc osteophyte complexes are also present in the midthoracic spine. IMPRESSION: 1. REDEMONSTRATED FOCAL WEAKENING ALONG THE RIGHT LATERAL EIGHTH INTERCOSTAL SPACE WITH MILD LUNG BUL GING/HERNIA MEASURING 9.4 X 4.7 CM (VERSUS 8.6 X 4.3 CM, PREVIOUSLY). 2. ECTATIC ASCENDING AORTA AT 3.9 CM. 3. AN INDETERMINATE CORTICAL LESION UPPER POLE LEFT KIDNEY MEASURES 1.7 CM VERSUS 1.6 CM, PREVIOUSLY. SUSPECT A HEMORRHAGIC CYST. ATTENTION ON FOLLOW-UP.
== END | disposition home or self-care (01) ==
LOC: RADCTMAIN 07:42
PROVIDERS: ATTEND Thoracic Surgery (Cardiothoracic Vascular Surgery)
DX: I71.2 Thoracic aortic aneurysm, without rupture (principal)
CPT/HCPCS: 71250

== ENCOUNTER → 2021-10-13 | Outpatient (CLI) | payer BC ==
--- NOTE | 2021-10-13 15:08 | US ---
EXAMINATION TYPE: US kidneys/renal and bladder DATE OF EXAM: 10/13/2021 COMPARISON: NONE CLINICAL HISTORY: N83.291 OTHER OVARIAN CYST, RIGHT SIDE. left renal cyst on recent CT exam EXAM MEASUREMENTS: Right Kidney: 12.2 x 5.4 x 5.4 cm Left Kidney: 11.2 x 5.0 x 5.6 cm technical limitations due to large amount of overlying bowel content Right Kidney: no evidence of hydronephrosis Left Kidney: lower pole obscured. cystic area upper pole = 1.6 x 1.4 x 1.5cm Bladder: not fully distended Bilateral Jets seen: no IMPRESSION: 1. There is a cyst at the upper pole left kidney.
== END | disposition home or self-care (01) ==
LOC: RADUSWWP 12:12
PROVIDERS: ATTEND Family Medicine
DX: N28.1 Cyst of kidney, acquired (principal)
CPT/HCPCS: 76770

== ENCOUNTER → 2021-11-03 | Outpatient (CLI) | payer BC ==
[2021-11-03 09:21] LABS: INR 0.9 (<1.2); Partial Thromboplastin Time 25.2 sec (22.0-30.0); Prothrombin Time 10.1 sec (9.0-12.0)
[2021-11-03 15:46] LABS: Basophils # (A) 0.07 X 10*3/uL (0.00-0.10); Eosinophils # (A) 0.21 X 10*3/uL (0.04-0.35); Eosinophils % (A) 3.1 %; HCT 42.2 % (39.6-50.0); HGB 13.7 g/dL (13.0-17.0); Immature Grans, Automated 0.1 %; Lymphocytes % (A) 32.9 %; MCH 30.4 pg (27.0-32.0); MCHC 32.5 g/dL (32.0-37.0); MCV 93.6 fL (80.0-97.0); Mean Platelet Volume 9.9 fL (9.5-12.2); Monocytes # (A) 0.38 X 10*3/uL (0.20-1.00); Monocytes % (A) 5.7 %; NRBC Per 100 WBC 0 /100 WBCS (0.0-0.0); Neutrophils # (A) 3.81 X 10*3/uL (1.80-7.70); Neutrophils % (A) 57.2 %; Platelet Count 188 X 10*3/uL (140-440); RBC 4.51 X 10*6/uL (4.40-5.60); RDW 13.7 % (11.5-14.5); WBC 6.68 X 10*3/uL (4.50-10.00)
[2021-11-03 16:02] LABS: African American GFR (CKD) 105.8 (60.0-200.0); Anion Gap 7.6 mmol/L (10.00-18.00); Blood Urea Nitrogen 13.7 mg/dL (9.0-27.0); Carbon Dioxide 28.7 mmol/L (20.0-27.5); Non-African American GFR(CKD) 91.3 (60.0-200.0); Potassium 4.2 mmol/L (3.5-5.5)
== END | disposition home or self-care (01) ==
LOC: LABPAT 07:58
PROVIDERS: ATTEND Thoracic Surgery (Cardiothoracic Vascular Surgery)
DX: Z01.812 Encounter for preprocedural laboratory examination (principal); J98.4 Other disorders of lung
CPT/HCPCS: 80051; 82565; 84520; 85025; 85610; 85730; 93005

== ENCOUNTER 2021-11-11 05:49 | Inpatient (IN) | payer BC ==
[2021-11-08 15:20] VITALS: BMI 33.0
[2021-11-11] MEDS ORDERED: HYDROmorphone 0.5 MG/0.5 ML SYRINGE IVP PRN (06:17)
[2021-11-11] MEDS ORDERED: ONDANSETRON 4 MG/2 ML VIAL IVP ONE ×2 (06:17→10:44)
[2021-11-11] MEDS ORDERED: DEXAMETHASONE SOD PHOSPHATE 4 MG/ML 1 ML VIAL IV ONE (06:17)
[2021-11-11 06:33] LABS: Glucose,Whole Blood 100 mg/dL (70-110)
[2021-11-11] MEDS: LACTATED RINGERS 1,000 ML IV SCH ×2 (06:38→07:32)
[2021-11-11] MEDS ORDERED: LIDOCAINE 1% INJ 10MG/ML (20 ML MDV) ONE (06:59)
[2021-11-11] MEDS ORDERED: MIDAZOLAM 2 MG/2 ML VIAL IVP ONE (07:18)
[2021-11-11] MEDS ORDERED: METOPROLOL TARTRATE 5 MG/5 ML VIAL IVP ONE ×3 (07:30→13:28)
[2021-11-11] MEDS ORDERED: SUCCINYLCHOLINE CHLORIDE VIAL 200 MG/10 ML VIAL IV ONE (07:30)
[2021-11-11] MEDS ORDERED: fentaNYL (PF) 50 MCG/ML 2 ML AMP ONE (07:30)
[2021-11-11] MEDS ORDERED: MIDAZOLAM 2 MG/2 ML VIAL ONE (07:30)
[2021-11-11] MEDS ORDERED: ROCURONIUM 10 MG/ML (5 ML VIAL) IV ONE (07:30)
[2021-11-11] MEDS ORDERED: PROPOFOL 10 MG/ML 20 ML VIAL IV ONE (07:30)
[2021-11-11] MEDS ORDERED: HYDROmorphone (PF) 1 MG/ML ONE (07:30)
[2021-11-11] MEDS ORDERED: GLYCOPYRROLATE 0.2 MG/ML 2 ML VIAL ONE (07:30)
[2021-11-11] MEDS ORDERED: LIDOCAINE 4% LTA KIT (4 ML) TOPICAL ONE (07:30)
[2021-11-11] MEDS ORDERED: NEOSTIGMINE 1 MG/ML 10 ML VIAL ONE (07:30)
[2021-11-11] MEDS ORDERED: DEXAMETHASONE SOD PHOSPHATE 4 MG/ML 1 ML VIAL ONE (07:30)
[2021-11-11] MEDS ORDERED: KETAMINE 10 MG/ML 20 ML VIAL ONE (07:30)
[2021-11-11] MEDS ORDERED: ROPIVACAINE 5 MG/ML 30 ML VIAL ONE (07:30)
[2021-11-11] MEDS ORDERED: LACTATED RINGERS 1,000 ML IV ONE (09:10)
--- NOTE | 2021-11-11 10:13 | P.ANPRN ---
Procedure Note - Anesthesia - Invasive Line Left Arterial Line Time Out Performed: Yes Date of Procedure: 11/11/21 Time of Procedure: 07:16 Location of Patient: PreOp Preparation: Sterile Prep, Sterile Dressing Arterial Line Location: Radial Ultrasound Used: No Purpose - Visualization and Identification of Vasculature: No Image Stored and Saved: No Narrative: Central line placement per sterile protocol utilized.
--- NOTE | 2021-11-11 10:45 | P.OP ---
Date of Procedure: 11/11/21 Preoperative Diagnosis: Right costal margin this junction with resultant enlarging lung hernia Postoperative Diagnosis: Same Procedure(s) Performed: Repair of right lung hernia with plate reconstruction of costal margin and [place]- Samy patch closure of intercostal lung hernia Implants: Rib plates, 2 mm [place]Samy patch Anesthesia: CONRADO Surgeon: Bertin Mathur Estimated Blood Loss (ml): 100 IV fluids (ml): 1,300 Pathology: none sent Condition: stable Disposition: PACU Indications for Procedure: 51-year-old male with spontaneous costal margin disruption associated with enlarging lung hernia which has become increasingly symptomatic. Operative Findings: Costal margin disruption between eighth and ninth ribs on the right. Costal margin was by about 4 cm. There was was resultant disruption of the intercostal musculature in the eighth interspace with herniation of the lung between the ribs. Description of Procedure: The patient was brought to the operating room and placed supine on the operating table. Gen. anesthesia was induced with the dual-lumen endotracheal tube placed and positioned with fiberoptic bronchoscopy. The right anterior and lateral chest were sterilely prepped and draped. Incision was made over the eighth interspace and continued for a short distance onto the anterior abdominal wall. Vision was carried down through the subcutaneous fat to the musculature. The musculature was divided and the hernia sac identified. The pleural space was opened. Soft tissue overlying the eighth and ninth ribs and the costal margin were free. We began by reapproximating the costal margin by placing 2 rib plates across the costal margin and the screwing them and securely with multiple screws. Once the costal margin had been reapproximated 2 mm [place]Samy patch was cut to appropriate shape. It was sutured into place with 0 Ethibond sutures placed through drill holes in the rib. Horizontal mattress sutures were utilized to secure the patch. Patch was continued medially to cover the plates. Prior to sewing the patch in place we irrigated with antibiotic solution and suctioned free the pleural space. During dissection and placement of the sutures we had the lung deflated but prior to tying the sutures and securing the patch we inflated the lung and put the patient back on 2 lung positive pressure ventilation. Once the patch was sewn in place we irrigated with antibiotic solution. The muscle was closed over the patch with running 0 Vicryl suture. Subcutaneous tissue was closed in 2 layers with 2-0 Vicryl suture. Skin was nori sed with running 3-0 Vicryl subcuticular stitches. Skin glue and dry sterile dressing were applied.
[2021-11-11] MEDS ORDERED: HYDROmorphone 0.5 MG/0.5 ML SYRINGE IVP ONE ×2 (11:04→11:15)
[2021-11-11] MEDS ORDERED: hydrALAZINE HCL 20 MG/ML 1 ML VIAL IVP ONE (11:05)
--- NOTE | 2021-11-11 11:39 | XR ---
EXAMINATION TYPE: XR chest 1V portable DATE OF EXAM: 11/11/2021 COMPARISON: X-ray dated 09/02/2020 HISTORY: Post lung repair TECHNIQUE: Single frontal view of the chest is obtained. FINDINGS: Slightly congested pulmonary vasculature which could be due to mild pulmonary edema, please correlate clinically. No renata pulmonary consolidation. No sizable pleural effusion or left pneumothorax. Questionable subtle minimal right apical pneumothorax versus artifact, please clinically. Further ins piratory/expiratory x-ray can be considered if clinically required. Increased cardiac transverse diameter. Right lower chest wall soft tissue emphysema. IMPRESSION: Questionable small right apical pneumothorax, further inspiratory/expiratory x-ray can be considered if clinically required. Other findings as described above.
[2021-11-11] MEDS ORDERED: cloNIDine HCL 0.1 MG TAB PO STA (12:02)
[2021-11-11] MEDS ORDERED: KETOROLAC 15 MG/ML 1 ML VIAL IVP ONE (12:20)
[2021-11-11] MEDS ORDERED: hydrALAZINE HCL 20 MG/ML 1 ML VIAL IV ONE (12:20)
[2021-11-11] MEDS ORDERED: ENALAPRILAT 1.25 MG/ML 1 ML VIAL IVP STA (12:41)
[2021-11-11] MEDS ORDERED: ENALAPRILAT 1.25 MG/ML 1 ML VIAL IV ONE (12:42)
[2021-11-11] MEDS ORDERED: ENALAPRILAT 1.25 MG/ML 1 ML VIAL IVP ONE (13:08)
[2021-11-11] MEDS ORDERED: CLEVIDIPINE BUTYRATE 25 MG in EMPTY BAG 1 BAG IV SCH (14:00)
[2021-11-11 14:20] LABS: Glucose,Whole Blood 159 mg/dL (70-110)
[2021-11-11] MEDS ORDERED: ACETAMINOPHEN TAB 325 MG TAB PO PRN (14:52)
[2021-11-11] MEDS ORDERED: ONDANSETRON 4 MG/2 ML VIAL IVP PRN (14:52)
--- NOTE | 2021-11-11 14:59 | P.CNPUL ---
History of Present Illness Consult date: 11/11/21 Requesting physician: Bertin Mathur Reason for consult: other Chief complaint: ICU management. History of present illness: Pulmonary/critical care consult dated 11/11/2021. 51-year-old male, who had a repair of right lung hernia plate reconstruction of costal margin and [place]-Samy patch closure of intercostal lung hernia. The surgery was done by Dr. Mathur. The patient was to be discharged home but unfortunately, issues with blood pressure prevented the discharge. The patient is admitted to the intensive care unit, to be placed on Cleveprex, for better blood pressure control. The patient does have a history of blood pressure issues anyway and is on numerous medications for his blood pressure. Currently, he is on 2 L nasal cannula. In addition, he is getting lactated Ringer's at 75 mL an hour. The nurse, and starting him on Cleveprex, to be titrated. His primary care physician is Dr. Raj Valero. No laboratory data today and she had. A chest x-ray postprocedure, shows a questionable small right apical pneumothorax. Review of Systems REVIEW OF SYSTEMS: CONSTITUTIONAL: Mild to moderate pain at the surgical site. NEUROLOGIC: [ Negative.] HEENT: [ Negative.] CARDIAC: [Negative.] PULMONARY: [Negative.] GI: [Negative.] : [Negative.] RHEUMATOLOGIC: [ Negative.] IMMUNOLOGIC: [ Negative.] ENDOCRINE: [Negative. ] DERMATOLOGIC: [Negative.] Past Medical History Past Medical History: Diabetes Mellitus, GERD/Reflux, Hyperlipidemia, Hypertension, Myocardial Infarction ([place]), Pneumonia Additional Past Medical History / Comment(s): Pt states May 2019 he was hospitalized at [facility] with pneumonia and fluid on his lungs-denies CHF, varicose veins, migraines, Last Myocardial Infarction Date:: 10/2019 History of Any Multi-Drug Resistant Organisms: None Reported Past Surgical History: Heart Catheterization With Stent Additional Past Surgical History / Comment(s): 11/11/19 one cardiac stent. oral surgery Past Anesthesia/Blood Transfusion Reactions: No Reported Reaction Additional Past Anesthesia/Blood Transfusion Reaction / Comment(s): Pt has never had general or spinal anesthesia. Date of Last Stent Placement:: 11/11/19 Smoking Status: Current every day smoker - Past Family History Mother Family Medical History: Congestive Heart Failure (CHF) Additional Family Medical History / Comment(s): Mother from CHF at the age of 64 yrs. Father Family Medical History: Dementia Additional Family Medical History / Comment(s): Father of dementia at the age of 72 yrs. Medications and Allergies Home Medications Medication Instructions Recorded Confirmed Type Atorvastatin [Lipitor] 80 mg PO HS #30 tab 11/13/19 11/11/21 Rx Nitroglycerin Sl Tabs [Nitrostat] 0.4 mg SUBLINGUAL Q5M PRN #100 tab 11/13/19 11/08/21 Rx Ticagrelor [Brilinta] 90 mg PO BID #60 tab 11/13/19 11/08/21 Rx hydrALAZINE HCL [Apresoline] 25 mg PO TID #90 tab 11/13/19 11/11/21 Rx metFORMIN HCL [Glucophage] 500 mg PO BID-W/MEALS #60 tab 11/13/19 11/11/21 Rx Semaglutide [Rybelsus] 14 mg PO DAILY 09/02/20 11/11/21 History lisinopriL [Zestril] 40 mg PO DAILY 09/02/20 11/11/21 History busPIRone HCL 5 mg PO DAILY 11/08/21 11/11/21 History risperiDONE [Risperdal] 1 mg PO HS 11/08/21 11/11/21 History Allergies Allergy/AdvReac Type Severity Reaction Status Date / Time No Known Allergies Allergy Verified 11/11/21 06:18 Physical Exam Osteopathic Statement: *. No significant issues noted on an osteopathic struc tural exam other than those noted in the History and Physical/Consult. Vitals: Vital Signs Temp Pulse Pulse Resp BP BP BP 11/11/21 14:04 72 16 226/82 11/11/21 13:40 74 16 249/78 11/11/21 13:25 68 16 239/78 11/11/21 13:10 74 16 242/77 11/11/21 12:55 73 16 235/76 11/11/21 12:40 73 16 233/59 11/11/21 12:25 69 16 219/76 11/11/21 12:11 73 18 243/81 11/11/21 12:01 67 18 254/74 11/11/21 11:54 66 18 216/64 11/11/21 11:50 60 18 197/62 11/11/21 11:46 76 18 238/80 11/11/21 11:33 83 18 11/11/21 11:26 93 18 11/11/21 11:20 16 262/82 11/11/21 11:08 77 16 244/88 11/11/21 10:52 77 16 11/11/21 10:37 97.3 F L 82 16 11/11/21 06:46 11/11/21 06:15 98.6 F 74 16 203/92 BP BP Pulse Ox 11/11/21 14:04 95 11/11/21 13:40 95 11/11/21 13:25 198/89 95 11/11/21 13:10 178/84 95 11/11/21 12:55 98 11/11/21 12:40 180/81 98 11/11/21 12:25 183/70 97 11/11/21 12:11 98 11/11/21 12:01 96 11/11/21 11:54 96 11/11/21 11:50 96 11/11/21 11:46 96 11/11/21 11:33 180/75 98 11/11/21 11:26 163/70 97 11/11/21 11:20 98 11/11/21 11:08 98 11/11/21 10:52 274/94 95 11/11/21 10:37 239/107 99 11/11/21 06:46 186/84 11/11/21 06:15 97 Intake and Output 11/10/21 11/11/21 11/11/21 22:59 06:59 14:59 Intake Total 1902.733 Output Total 1000 Balance 902.733 Intake: IV 1900 Intake, IV Titration 2.733 Amount Clevidipine Butyrate 25 2.733 mg In Empty Bag 1 bag @ 1 MG/HR 2 mls/hr IV .Q24H [facility] Rx#:[id number] Output: Urine 900 Estimated Blood Loss 100 Other: Weight 109.5 kg No acute distress, oriented 3. Currently on 2 L nasal cannula. Saturations are 95%. HEENT examination is grossly unremarkable. Neck supple. Full range of motion. No adenopathy thyromegaly or neck vein distention. Cardiovascular examination reveals regular rhythm rate. S1-S2 normal. No S3 or S4. No discernible murmur noted. Heart rate 72 bpm. Lungs reveal mostly clear breath sounds. The patient does not take deep breaths. Scattered mild rhonchi are noted. No wheezes. No crackles. Abdomen soft bowel sounds are heard. No masses or tenderness. Extremities are intact. No cyanosis clubbing or edema. Skin is without rash or lesion. Neurologic examination is brief but nonfocal. Results - Laboratory Findings Abnormal lab findings: Abnormal Labs 11/11/21 14:16 POC Glucose (mg/dL) 159 H - Diagnostic Findings Chest x-ray: image reviewed Assessment and Plan Assessment: Post-op day #0, status post repair of intercostal lung hernia with plating. Post-procedure hypertension, which will require IV therapy. History of hyperlipidemia. History of hypertension. History of diabetes mellitus. Plan: Plan dated 11/11/2021. The patient is admitted to the intensive care unit under Dr. Mathur who did the surgery. The patient had significant elevations of blood pressure after the procedure. The patient's currently on 2 L nasal cannula. He is getting lactated Ringer's at 75 mL an hour. The patient will be started on Cleveprex for better blood pressure control. I've also asked the nurses to restart the patient's home blood pressure medications. The patient was to be discharged today after the procedure, but because of the elevated blood pressure, the patient will have to stay at least overnight. Additional recommendations and suggestions are forthcoming. Prognosis is guarded. Time with Patient: Greater than 30
[2021-11-11] MEDS: CLEVIDIPINE BUTYRATE 25 MG in EMPTY BAG 1 BAG IV SCH ×5 (15:03→20:09)
[2021-11-11] MEDS: hydrALAZINE HCL 25 MG TAB PO SCH ×2 (15:06→20:06)
[2021-11-11] MEDS: traMADol 50 MG TAB PO PRN (15:15)
[2021-11-11] MEDS: LABETALOL 100 MG TAB PO SCH ×2 (16:15→20:06)
[2021-11-11 17:14] LABS: Glucose,Whole Blood 160 mg/dL (70-110)
[2021-11-11] MEDS ORDERED: LORazepam 2 MG/ML INJ IV PRN ×2 (17:14→17:44)
[2021-11-11] MEDS: INSULIN ASPART (NovoLOG) 100 UNIT/ML VIAL SQ SCH ×2 (17:40→20:06)
[2021-11-11] MEDS: metFORMIN 500 MG TAB PO SCH (17:41)
[2021-11-11] MEDS ORDERED: LORazepam 0.5 MG TAB PO PRN (17:48)
[2021-11-11] MEDS ORDERED: KETOROLAC 15 MG/ML 1 ML VIAL IVP PRN (18:00)
[2021-11-11] MEDS ORDERED: TAMSULOSIN 0.4 MG CAP.ER.24H PO SCH (18:30)
[2021-11-11 19:55] LABS: Glucose,Whole Blood 157 mg/dL (70-110)
[2021-11-11] MEDS: TICAGRELOR 90 MG TAB PO SCH (20:06)
--- NOTE | 2021-11-11 20:12 | P.ANPRN ---
Procedure Note - Anesthesia - Nerve Block Performed Right Erector Spinae Single Time Out Performed: Yes Date of Procedure: 11/11/21 Procedure Start Time: Procedure Stop Time: Location of Patient: PreOp Indication: Acute Post-Operative Pain, Requested by Surgeon Sedation Type: Sedate with meaningful contact maintained Preparation: Sterile Prep Position: Prone Needle Types: Pajunk Needle Gauge: 21 Ultrasound used to visualize needle placement: Yes Ultrasound used to observe medication spread: Yes Blood Aspirated: No Pain Paresthesia on Injection Noted: No Resistance on Injection: Normal Image Stored and Saved: Yes Events: Uneventful and Well Tolerated (ropi .5% 20cc plus ns 10cc plus dexamethasone 4mg)
[2021-11-11] MEDS ORDERED: ATORVASTATIN 80 MG TAB PO SCH (21:00)
[2021-11-11] MEDS ORDERED: risperiDONE 1 MG TAB PO SCH (21:00)
--- NOTE | 2021-11-11 22:37 | CONS ---
CONSULTATION 51-year-old white male, status post hernia repair of the right chest. He has had hypertension acceleration ever since surgery. Blood pressure is 200s over 80s. He has been given Cleviprex for better blood pressure control and is still maintaining over 200 systolic. He had diuretics ordered and carvedilol, labetalol ordered IV p.r.n. we are going to give him Ativan for anxiety as he is having an anxiety attack I think at this time. Appears very restless and nervous. He is currently getting ringers at 75 an hour. Discussed case with the nurse who is going to give him a dose of 0.5 mg IV Ativan right now. Surgical history is mild to moderate pain at incisional site, otherwise negative. Psych: Anxious nervous. Otherwise negative 14-point review of systems. PAST MEDICAL HISTORY: Diabetes mellitus, GERD, hypertension, dyslipidemia, and myocardial infarction. FAMILY HISTORY: Mother with congestive heart failure. Father had dementia. MEDICATIONS: Lipitor 80 daily, nitroglycerin sublingual p.r.n., Brilinta 90 mg b.i.d., Apresoline 25 mg t.i.d., metformin 500 mg b.i.d., 14 mg daily, Zestril 40 mg daily, BuSpar 5 mg daily, Risperdal 1 mg at night. ALLERGIES: Negative. PHYSICAL EXAMINATION: Blood pressure is 200 systolic over 80, it has been high all night since surgery all afternoon, pulse 60s 70s, respiratory 16 to 18, temp 97 to 98. Cardiovascular S1-S2. Hematology negative Homans'. Psych: Fair mood and affect. Incision clean, dry, intact. Lungs are clear. Cardiovascular S1, S2. No murmurs, rubs, gallops. Psych appears anxious, nervous. ASSESSMENT: 1. Hypertension acceleration postop. 2. hernia repair. 3. Hypertension acceleration p.r.n. 4. Blood pressure medications ordered. Home medications are order. 5. Anxiety medications have been just ordered. 6. Hopefully that will bring down his blood pressure. I think he is having an anxiety attack at this point. MMODL / IJN: [id number] /
[2021-11-12] MEDS: traMADol 50 MG TAB PO PRN (03:49)
[2021-11-12 04:23] LABS: Basophils # (A) 0.1 k/uL (0-0.2); Basophils % (A) 0 %; Eosinophils # (A) 0.1 k/uL (0-0.7); Eosinophils % (A) 0 %; HCT 38.2 % (39.0-53.0); HGB 12.8 gm/dL (13.0-17.5); Lymphocytes # (A) 1.8 k/uL (1.0-4.8); Lymphocytes % (A) 14 %; MCH 31.5 pg (25.0-35.0); MCHC 33.6 g/dL (31.0-37.0); MCV 93.7 fL (80.0-100.0); Mean Platelet Volume 7.8; Monocytes % (A) 8 %; Neutrophils # (A) 10.1 k/uL (1.3-7.7); Neutrophils % (A) 77 %; Platelet Count 180 k/uL (150-450); RBC 4.08 m/uL (4.30-5.90); RDW 13.4 % (11.5-15.5); WBC 13.1 k/uL (3.8-10.6)
[2021-11-12 04:35] LABS: African American GFR (CKD) >90 (>60 ml/min/1.73 sqM); Anion Gap 4 mmol/L; Blood Urea Nitrogen 16 mg/dL (9-20); Calcium 8.2 mg/dL (8.4-10.2); Carbon Dioxide 25 mmol/L (22-30); Chloride 104 mmol/L (98-107); Glucose 113 mg/dL (74-99); Non-African American GFR(CKD) >90 (>60 ml/min/1.73 sqM); Potassium 3.6 mmol/L (3.5-5.1); Sodium 133 mmol/L (137-145)
[2021-11-12] MEDS ORDERED: Potassium Replacement Protocol 1 EACH MISC MISCELLANE PRN (04:54)
[2021-11-12] MEDS ORDERED: POTASSIUM CHLORIDE ER 20 MEQ TAB.ER PO SCH (05:00)
[2021-11-12] MEDS: INSULIN ASPART (NovoLOG) 100 UNIT/ML VIAL SQ SCH (05:46)
[2021-11-12] MEDS: LACTATED RINGERS 1,000 ML IV SCH (05:46)
[2021-11-12] MEDS: metFORMIN 500 MG TAB PO SCH (06:01)
--- NOTE | 2021-11-12 07:16 | XR ---
EXAMINATION TYPE: XR chest 1V DATE OF EXAM: 11/12/2021 COMPARISON: 11/11/2021 HISTORY: Chest pain TECHNIQUE: Single frontal view of the chest is obtained. FINDINGS: Persistent patchy density right medial lung base. Correlate for underlying pneumonia. Mild patchy den sity left lateral lung base as well. The cardiac silhouette size is within normal limits. The osseous structures are intact. IMPRESSION: 1. Persistent patchy density right medial lung base. Correlate for underlying pneumonia. Mild patchy density left lateral lung base as well.
[2021-11-12] MEDS ORDERED: PANTOPRAZOLE 40 MG TABLET PO SCH (07:30)
[2021-11-12 08:14] VITALS: PULSE 65; RESP 18; TEMP 97.9
--- NOTE | 2021-11-12 08:14 | P.PN ---
Subjective Progress Note Date: 11/12/21 Principal diagnosis: Right costal margin disruption with resultant enlarging lung hernia. Previous medical history of CAD with myocardial infarction status post PCI in 2019, hyper tension, hyperlipidemia, type 2 diabetes, current tobacco dependence, history of pneumonia POD #1 repair of right lung hernia with plate reconstruction of costal margin and [place]-Samy patch closure of intercostal lung hernia Postoperative accelerated hypertension, unexpected The patient was seen and examined the spring sitting up in bed in no acute distress. States pain is controlled on current medication regimen. Remains in sinus rhythm, blood pressure much better controlled. Was started yesterday on oral labetalol and given 1 dose of Ativan. Patient is anxious to go home today. No other new concerns. Objective - Vital Signs Vital signs: Vital Signs Temp 98 F 11/12/21 03:55 Pulse 60 11/12/21 07:00 Resp 16 11/12/21 07:00 BP 179/61 11/12/21 07:00 Pulse Ox 95 11/12/21 07:00 FiO2 Intake & Output 11/11/21 11/12/21 11/12/21 18:59 06:59 18:59 Intake Total 2123.766 315.533 20 Output Total 2675 2675 475 Balance -551.234 -2359.467 -455 Weight 109.5 kg 108.1 kg Intake: IV 2000 240 20 0.9% NS 100 240 20 Intake, IV Titration 123.766 75.533 Amount Clevidipine Butyrate 25 4.866 mg In Empty Bag 1 bag @ 1 MG/HR 2 mls/hr IV .Q24H QING Rx#:[id number] Clevidipine Butyrate 25 118.9 75.533 mg In Empty Bag 1 bag @ 1 MG/HR 2 mls/hr IV .Q24H QING Rx#:[id number] Output: Urine 2575 2400 475 Post Void Residual 275 Estimated Blood Loss 100 Other: Voiding Method Urinal Urinal # Voids 0 ABP, PAP, CO, CI - Last Documented Arterial Blood Pressure 137/52 - Exam CONSTITUTIONAL: Appears comfortable, cooperative, no acute distress RESPIRATORY: Lungs sounds diminished bilaterally. Respirations even, nonlabored. Currently on room air with oxygen saturation 95%. Able to achieve 2250 mL on incentive spirometry. Strong cough. CARDIOVASCULAR: S1, S2 present. Regular rate and rhythm, sinus rhythm on telemetry. Palpable peripheral pulses bilaterally. No edema present. No calf pain or tenderness noted. SCDs present. GASTROINTESTINAL: Abdomen soft, nontender, nondistended. Active bowel sounds present 4 quadrants. Tolerating diet. GENITOURINARY: Continues to void clear, yellow urine INTEGUMENTARY: Skin is warm and dry with evidence of good perfusion. Thoracic incision well approximated and covered with dry intact dressing. NEUROLOGIC: Cranial nerves II through XII intact MUSKULOSKELETAL: Able to move all extremities, strength equal bilaterally, gait normal PSYCHIATRIC: Alert and oriented to person place and time, appropriate affect, intact judgment and insight INVASIVE LINES AND TUBES: Right radial arterial line in place - Allied health notes Allied health notes reviewed: nursing - Labs CBC & Chem 7: 11/12/21 04:10 11/12/21 04:10 Labs: Abnormal Lab Results - Last 24 Hours (Table) 11/11/21 11/11/21 11/11/21 Range/Units 14:16 17:13 19:53 WBC (3.8-10.6) k/uL RBC (4.30-5.90) m/uL Hgb (13.0-17.5) gm/dL Hct (39.0-53.0) % Neutrophils # (1.3-7.7) k/uL Sodium (137-145) mmol/L Glucose (74-99) mg/dL POC Glucose (mg/dL) 159 H 160 H 157 H (70-110) mg/dL Calcium (8.4-10.2) mg/dL 11/12/21 11/12/21 Range/Units 04:10 04:10 WBC 13.1 H (3.8-10.6) k/uL RBC 4.08 L (4.30-5.90) m/uL Hgb 12.8 L (13.0-17.5) gm/dL Hct 38.2 L (39.0-53.0) % Neutrophils # 10.1 H (1.3-7.7) k/uL Sodium 133 L (137-145) mmol/L Glucose 113 H (74-99) mg/dL POC Glucose (mg/dL) (70-110) mg/dL Calcium 8.2 L (8.4-10.2) mg/dL - Imaging and Cardiology Chest x-ray: report reviewed, image reviewed Assessment and Plan Assessment: 1. Right costal margin disruption with resultant enlarging lung hernia, status post repair of right lung hernia with plate reconstruction of costal margin and [place]-Samy patch closure of intercostal lung hernia 2. History of CAD with myocardial infarction status post PCI in 2019 3. Hypertension with postoperative accelerated hypertension 4. Hyperlipidemia, treated 5. Type 2 diabetes 6. Current tobacco dependence 7. History of pneumonia Plan: 1. Continue current medication regimen. We will continue labetalol and sent home with new prescription 2. Encourage incentive spirometry use. Encourage smoking cessation 3. Discontinue arterial line 4. Patient instructed he is to take it easy for the next month, no lifting, bending, stretching 5. Will discharge to home today. Appointments made for Dr. Mathur and Dr. Vlaero follow-up
[2021-11-12] MEDS: hydrALAZINE HCL 25 MG TAB PO SCH (08:18)
[2021-11-12] MEDS: TICAGRELOR 90 MG TAB PO SCH (08:18)
[2021-11-12] MEDS: LABETALOL 100 MG TAB PO SCH ×2 (08:19→08:29)
[2021-11-12] MEDS ORDERED: lisinopriL 20 MG TAB PO SCH (09:00)
[2021-11-12] MEDS ORDERED: busPIRone HCl 5 MG TAB PO SCH (09:00)
[2021-11-12] MEDS ORDERED: LABETALOL 200 MG TAB PO SCH (09:00)
[2021-11-12] MEDS ORDERED: PATIENT'S OWN (Semaglutide [Rybelsus] 14 MG Tablet) PO SCH (09:00)
[2021-11-12 10:07] VITALS: BP 151/65
--- NOTE | 2021-11-12 10:34 | P.PN ---
Subjective Progress Note Date: 11/12/21 Principal diagnosis: Elevated blood pressure. Pulmonary/critical care consult dated 11/11/2021. 51-year-old male, who had a repair of right lung hernia plate reconstruction of costal margin and [place]-Samy patch closure of intercostal lung hernia. The surgery was done by Dr. Mathur. The patient was to be discharged home but unfortunately, issues with blood pressure prevented the discharge. The patient is admitted to the intensive care unit, to be placed on Cleveprex, for better blood pressure control. The patient does have a history of blood pressure issues anyway and is on numerous medications for his blood pressure. Currently, he is on 2 L nasal cannula. In addition, he is getting lactated Ringer's at 75 mL an hour. The nurse, and starting him on Cleveprex, to be titrated. His primary care physician is Dr. Raj Valero. No laboratory data today and she had. A chest x-ray postprocedure, shows a questionable small right apical pneumothorax. Progress note dated 11/12/2021. This is a 51-year-old male seen in room 257. The patient is postop day #1, status post repair of a right intercostal lung hernia. The surgery was done by Dr. Mathur. The patient was to be discharged yesterday after the procedure, but because of elevated blood pressure, the patient came to the intensive care unit, for further monitoring and management. The patient was initially placed on Cleveprex. Currently, he is on room air, without any IV fluids. Cleveprex is off. His home blood pressure medications were restarted. White count 13.1, hemoglobin 12.8, hematocrit 38.2, and platelet count 280,000. Sodium 133, potassium 3.6, chlorides 104, CO2 25, BUN 16, creatinine 0.94. A chest x-ray shows a persistent patchy density right medial lung base. Objective - Vital Signs Vital signs: Vital Signs Temp 97.9 F 11/12/21 08:13 Pulse 65 11/12/21 08:13 Resp 18 11/12/21 08:13 BP 151/65 11/12/21 10:05 Pulse Ox 93 L 11/12/21 08:13 FiO2 Intake & Output 11/11/21 11/12/21 11/12/21 18:59 06:59 18:59 Intake Total 2123.766 315.533 20 Output Total 2675 2675 575 Balance -551.234 -4819.467 -555 Weight 109.5 kg 108.1 kg Intake: IV 2000 240 20 0.9% NS 100 240 20 Intake, IV Titration 123.766 75.533 Amount Clevidipine Butyrate 25 4.866 mg In Empty Bag 1 bag @ 1 MG/HR 2 mls/hr IV .Q24H QING Rx#:[id number] Clevidipine Butyrate 25 118.9 75.533 mg In Empty Bag 1 bag @ 1 MG/HR 2 mls/hr IV .Q24H QING Rx#:[id number] Output: Urine 2575 2400 575 Post Void Residual 275 Estimated Blood Loss 100 Other: Voiding Method Urinal Urinal Urinal # Voids 0 ABP, PAP, CO, CI - Last Documented Arterial Blood Pressure 137/52 - Exam No acute distress, oriented 3. Currently on room air, with saturations of 96%. HEENT examination is grossly unremarkable. Neck supple. Full range of motion. No adenopathy thyromegaly or neck vein distention. Cardiovascular examination reveals regular rhythm rate. S1-S2 normal. No S3 or S4. No discernible murmur noted. Heart rate 84 bpm. Lungs reveal mostly clear breath sounds. The patient does not take deep breaths. Scattered mild rhonchi are noted. No wheezes. No crackles. Abdomen soft bowel sounds are heard. No masses or tenderness. Extremities are intact. No cyanosis clubbing or edema. Skin is without rash or lesion. Neurologic examination is brief but nonfocal. - Labs CBC & Chem 7: 11/12/21 04:10 11/12/21 04:10 Labs: Abnormal Lab Results - Last 24 Hours (Table) 11/11/21 11/11/21 11/11/21 Range/Units 14:16 17:13 19:53 WBC (3.8-10.6) k/uL RBC (4.30-5.90) m/uL Hgb (13.0-17.5) gm/dL Hct (39.0-53.0) % Neutrophils # (1.3-7.7) k/uL Sodium (137-145) mmol/L Glucose (74-99) mg/dL POC Glucose (mg/dL) 159 H 160 H 157 H (70-110) mg/dL Calcium (8.4-10.2) mg/dL 11/12/21 11/12/21 Range/Units 04:10 04:10 WBC 13.1 H (3.8-10.6) k/uL RBC 4.08 L (4.30-5.90) m/uL Hgb 12.8 L (13.0-17.5) gm/dL Hct 38.2 L (39.0-53.0) % Neutrophils # 10.1 H (1.3-7.7) k/uL Sodium 133 L (137-145) mmol/L Glucose 113 H (74-99) mg/dL POC Glucose (mg/dL) (70-110) mg/dL Calcium 8.2 L (8.4-10.2) mg/dL Assessment and Plan Assessment: Post-op day #1, status post repair of intercostal lung hernia with plating. Post-procedure hypertension, much improved. History of hyperlipidemia. History of hypertension. History of diabetes mellitus. Plan: Plan dated 11/11/2021. The patient is admitted to the intensive care unit under Dr. Mathur who did the surgery. The patient had significant elevations of blood pressure after the procedure. The patient's currently on 2 L nasal cannula. He is getting lactated Ringer's at 75 mL an hour. The patient will be started on Cleveprex for better blood pressure control. I've also asked the nurses to restart the patient's home blood pressure medications. The patient was to be discharged today after the procedure, but because of the elevated blood pressure, the patient will have to stay at least overnight. Additional recommendations and suggestions are forthcoming. Prognosis is guarded. Plan dated 11/12/2021. The patient appears to be doing much better. The patient's on room air, and not receiving any IV fluids. He has been weaned off his Cleveprex. Home blood pressure medications, will be started. The patient is to continue using his incentive spirometer. Additional recommendations and suggestions are forthcomin g. The patient may be discharged home today. The patient needs to follow-up with his primary care physician is Dr. Raj Valero. Time with Patient: Less than 30
--- NOTE | 2021-11-12 12:39 | P.DS ---
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 Right costal margin disruption with resultant enlarging lung hernia 2. History of CAD with myocardial infarction status post PCI in 2019 3. Hypertension with postoperative accelerated hypertension 4. Hyperlipidemia, treated 5. Type 2 diabetes 6. Current tobacco dependence 7. History of pneumonia PRINCIPAL PROCEDURE: 1. Repair of right lung hernia with plate reconstruction of costal margin and [place]-Samy patch closure of intercostal lung hernia HISTORY OF PRESENT ILLNESS: This is a 51-year-old active gentleman who follows on an outpatient basis with Dr. Raj Valero for primary care. He was diagnosed about a year ago with a right lung hernia and was seen by Dr. Mathur in consultation initially 03/25/2021. At that time the lung hernia really did not bother the patient to much other than minor tolerable pain when turning his head at work, and he opted to continue surveillance. A follow-up computed tomography scan was performed on 10/04/2021 demonstrating increased size of the gap between the eighth and ninth ribs. The patient's pain was considerably worse and decreasing his ability to be as active as he would like, and he followed up with Dr. Mathur. He was recommended to undergo elective surgical lung hernia repair. The usual perioperative course was discussed in detail with the patient, all risks and benefits were explained, all questions were answered, and consent was obtained to proceed with surgery. The patient was scheduled for surgery at the earliest possible date. HOSPITAL COURSE: The patient was brought to the hospital on 11/11/21, taken to the preoperative area, prepared in the usual fashion, and subsequently taken to the operating room where Dr. Mathur performed a repair of the right lung hernia. He was extubated and transferred to the recovery room for close monitoring. The patient was going to be discharged to home, however he developed accelerated hypertension and was transferred to the intensive care unit for blood pressure management. He was started on labetalol for blood pressure control and successfully weaned off Cleviprex. All lines, tubes, and drips were discontinued when appropriate, his oxygen was titrated down, he was tolerating oral diet, his pain was controlled, and he was ready to be discharged to home on postoperative day #1. He received written and verbal instruction regarding his medications, activity restrictions, signs and symptoms requiring physician notification, and follow-up appointments. Patient Condition at Discharge: Stable Plan - Discharge Summary Discharge Rx Participant: Yes New Discharge Prescriptions: New Labetalol [Trandate] 200 mg PO BID #60 tab Acetaminophen Tab [Tylenol] 650 mg PO Q4HR PRN tab PRN Reason: Fever And/ Or Pain traMADol HCl [Ultram] 50 mg PO Q6HR PRN #28 tab PRN Reason: Breakthrough Pain Continue hydrALAZINE HCL [Apresoline] 25 mg PO TID #90 tab Ticagrelor [Brilinta] 90 mg PO BID #60 tab metFORMIN HCL [Glucophage] 500 mg PO BID-W/MEALS #60 tab Atorvastatin [Lipitor] 80 mg PO HS #30 tab Nitroglycerin Sl Tabs [Nitrostat] 0.4 mg SUBLINGUAL Q5M PRN #100 tab PRN Reason: Chest Pain lisinopriL [Zestril] 40 mg PO DAILY risperiDONE [RisperDAL] 1 mg PO HS busPIRone HCL 5 mg PO DAILY Semaglutide [Rybelsus] 14 mg PO DAILY Discharge Medication List Atorvastatin [Lipitor] 80 mg PO HS #30 tab 11/13/19 [Rx] Nitroglycerin Sl Tabs [Nitrostat] 0.4 mg SUBLINGUAL Q5M PRN #100 tab 11/13/19 [Rx] Ticagrelor [Brilinta] 90 mg PO BID #60 tab 11/13/19 [Rx] hydrALAZINE HCL [Apresoline] 25 mg PO TID #90 tab 11/13/19 [Rx] metFORMIN HCL [Glucophage] 500 mg PO BID-W/MEALS #60 tab 11/13/19 [Rx] Semaglutide [Rybelsus] 14 mg PO DAILY 09/02/20 [History] lisinopriL [Zestril] 40 mg PO DAILY 09/02/20 [History] busPIRone HCL 5 mg PO DAILY 11/08/21 [History] risperiDONE [RisperDAL] 1 mg PO HS 11/08/21 [History] Acetaminophen Tab [Tylenol] 650 mg PO Q4HR PRN tab 11/12/21 [Rx] Labetalol [Trandate] 200 mg PO BID #60 tab 11/12/21 [Rx] traMADol HCl [Ultram] 50 mg PO Q6HR PRN #28 tab 11/12/21 [Rx] Follow up Appointment(s)/Referral(s): Raj Valero MD [Primary Care Provider] - 1 Week (Please call for follow-up appointment, there was no answer the office Monday morning) Bertin Mathur MD [STAFF PHYSICIAN] - 11/18/21 9:45 am Activity/Diet/Wound Care/Special Instructions: DISCHARGE INSTRUCTIONS: 1. No driving for 2 weeks, or until physician gives their ok. 2. No lifting, pushing, or pulling more than 10 pounds, no bending or stretching for 4 weeks 3. Continue pain control per as needed orders. Alternate acetaminophen ( Tylenol) and ibuprofen (Motrin/Advil) for pain, may use tramadol for breakthrough pain. 4. Continue with incentive spirometry and splinting until otherwise directed by the physician. 5. Leave dressing for 48 hours. After that, remove dressing and shower daily. 6. Routine incision care. No powders, lotions, ointments on incisions. 7. Please call surgeon/AIR TRAFFIC INSTRUCTOR for temp greater than 101 F or purulent drainage from incisions. 8. Smoking cessation counseling and program information provided. Discharge Disposition: HOME SELF-CARE
--- NOTE | 2021-11-16 15:14 | CDI ---
Documentation Clarification Form Date: 11/16/2021 02:54:33 PM From: Indigo Roman RN, CCDS Email: [email or web address] Admit Date: 11/11/2021 05:49:00 AM Patient Name: Wesley Andre Visit Number: [id number] Discharge Date: 11/12/2021 10:42:00 AM ATTENTION: The Clinical Documentation Specialists (CDI) and [facility] Coding Staff appreciate your assistance in clarifying documentation. Please respond to the clarification below the line at the bottom and electronically sign. The CDI & [facility] Coding staff will review the response and follow-up if needed. Please note: Queries are made part of the Legal Health Record. If you have any questions, please contact the author of this message via ITS. Dr. Bertin Mathur Postop accelerated hypertension unexpected is documented. Additional clarification is requested. Patients Admitting Diagnosis: chest wall hernia Post-Operative Diagnosis: same Procedure performed: Repair of right lung hernia with plate reconstruction of costal margin and [place]- Samy patch closure of intercostal lung hernia History/Risk Factors: chest wall hernia, hypertension, diabetes Clinical Indicators: Surgery: "Postoperative accelerated hypertension, unexpected." IM: "status post hernia repair of the right chest. He has had hypertension acceleration ever since surgery. Blood pressure is 200s over 80s. He has been given Cleviprex for better blood pressure control and is still maintaining over 200 systolic. He had diuretics ordered and carvedilol, labetalol ordered IV p.r.n. we are going to give him Ativan for anxiety as he is having an anxiety attack I think at this time. Appears very restless and nervous." Pulmonary: "repair of right lung hernia plate reconstruction of costal margin and [place]-Samy patch closure of intercostal lung hernia. The patient was to be discharged home but unfortunately, issues with blood pressure prevented the discharge. The patient is admitted to the intensive care unit, to be placed on Cleveprex, for better blood pressure control. The patient does have a history of blood pressure issues anyway and is on numerous medications for his blood pressure." Treatment: IV Cleveprex 2ml/hr. Started on home bp meds. O2 Please clarify if accelerated postop hypertension is a complication of the surgical procedure: [ ] Yes (complication of surgical procedure) [ x ] No (related to co-morbid conditions) [ ] Other, please specify [ ] Unable to determine MTDD
== END 2021-11-12 10:42 | disposition home or self-care (01) | DRG 168 ==
LOC: 2ORMAIN 05:49 → 2SICU 13:51
PROVIDERS: ADMIT Thoracic Surgery (Cardiothoracic Vascular Surgery); ATTEND Thoracic Surgery (Cardiothoracic Vascular Surgery)
PROC: 0PU Upper Bones, Supplement (ICD-10-PCS; principal; 2021-11-11 07:30)
DX: S23.41XA Sprain of ribs, initial encounter (principal); J98.4 Other disorders of lung; E11.9 Type 2 diabetes mellitus without complications; E66.01 Morbid (severe) obesity due to excess calories; F41.1 Generalized anxiety disorder; I10 Essential (primary) hypertension; H91.90 Unspecified hearing loss, unspecified ear; E78.5 Hyperlipidemia, unspecified; K21.9 Gastro-esophageal reflux disease without esophagitis; I25.10 Atherosclerotic heart disease of native coronary artery without angina pectoris; I25.2 Old myocardial infarction; I83.90 Asymptomatic varicose veins of unspecified lower extremity; Z68.32 Body mass index [BMI] 32.0-32.9, adult; F17.210 Nicotine dependence, cigarettes, uncomplicated; Z71.6 Tobacco abuse counseling; Z79.84 Long term (current) use of oral hypoglycemic drugs; Z79.02 Long term (current) use of antithrombotics/antiplatelets; Z79.899 Other long term (current) drug therapy; Z87.01 Personal history of pneumonia (recurrent); Z95.5 Presence of coronary angioplasty implant and graft; Z98.890 Other specified postprocedural states; Z98.818 Other dental procedure status; Z82.49 Family history of ischemic heart disease and other diseases of the circulatory system; Z80.1 Family history of malignant neoplasm of trachea, bronchus and lung; Z81.8 Family history of other mental and behavioral disorders
CPT/HCPCS: 64999; 71045; 76942; 80048; 85025; 86850; 86900; 86901

== ENCOUNTER 2024-10-31 12:48 | Emergency (ER) | payer BC ==
[2024-10-31 13:21] VITALS: RESP 18
--- NOTE | 2024-10-31 13:43 | ED ---
Extremity Problem HPI - General Chief complaint: Extremity Problem,Nontraumatic Stated complaint: Right Leg Pain Time Seen by Provider: 10/31/24 13:20 Source: patient, RN notes reviewed, old records reviewed Mode of arrival: ambulatory Limitations: no limitations - History of Present Illness Initial comments: This is a 54-year-old male who presents to the emergency department stating that he has had left calf and ankle pain for the last 6 months. Patient states he has been to his primary medical care doctor multiple times and has not gotten any better. Patient Nuys redness patient denies injury patient denies any swelling. Patient states that chest pain and has noticed the pain is much worse with ambulation. Patient states the longer he walks the more it hurts and he has to eventually stop and rest. Patient is a smoker. - Related Data Home Medications Medication Instructions Recorded Confirmed Semaglutide [Rybelsus] 14 mg PO DAILY 09/02/20 11/11/21 lisinopriL [Zestril] 40 mg PO DAILY 09/02/20 11/11/21 busPIRone HCL 5 mg PO DAILY 11/08/21 11/11/21 risperiDONE [RisperDAL] 1 mg PO HS 11/08/21 11/11/21 Previous Rx's Medication Instructions Recorded Atorvastatin [Lipitor] 80 mg PO HS #30 tab 11/13/19 Nitroglycerin Sl Tabs [Nitrostat] 0.4 mg SUBLINGUAL Q5M PRN #100 tab 11/13/19 Ticagrelor [Brilinta] 90 mg PO BID #60 tab 11/13/19 hydrALAZINE HCL [Apresoline] 25 mg PO TID #90 tab 11/13/19 metFORMIN HCL [Glucophage] 500 mg PO BID-W/MEALS #60 tab 11/13/19 Acetaminophen Tab [Tylenol] 650 mg PO Q4HR PRN tab 11/12/21 Labetalol [Trandate] 200 mg PO BID #60 tab 11/12/21 traMADol HCl [Ultram] 50 mg PO Q6HR PRN #28 tab 11/12/21 Allergies Allergy/AdvReac Type Severity Reaction Status Date / Time No Known Allergies Allergy Verified 10/31/24 13:18 Review of Systems ROS Statement: Those systems with pertinent positive or pertinent negative responses have been documented in the HPI. ROS Other: All systems not noted in ROS Statement are negative. Past Medical History Past Medical History: Heart Failure, Diabetes Mellitus, GERD/Reflux, Hyperlipidemia, Hypertension, Myocardial Infarction (NM), Pneumonia Additional Past Medical History / Comment(s): Pt states May 2019 he was hospitalized at [facility] with pneumonia and fluid on his lungs-denies CHF, varicose veins, migraines. 11/11/2021 lung hernia repair Last Myocardial Infarction Date:: 10/2019 History of Any Multi-Drug Resistant Organisms: None Reported Past Surgical History: Heart Catheterization With Stent Additional Past Surgical History / Comment(s): 11/11/19 one cardiac stent. oral surgery, back/chest sx Past Anesthesia/Blood Transfusion Reactions: No Reported Reaction Additional Past Anesthesia/Blood Transfusion Reaction / Comment(s): Pt has never had general or spinal anesthesia. Date of Last Stent Placement:: 11/11/19 Past Psychological History: Anxiety, Depression Smoking Status: Vaper Past Alcohol Use History: None Reported Past Drug Use History: Marijuana - Past Family History Mother Family Medical History: Congestive Heart Failure (CHF) Additional Family Medical History / Comment(s): Mother from CHF at the age of 64 yrs. Father Family Medical History: Dementia Additional Family Medical History / Comment(s): Father of dementia at the age of 72 yrs. General Exam - General Exam Comments Initial Comments: GENERAL: Patient is well-developed and well-nourished. Patient is nontoxic and well- hydrated and is in no acute distress. ENT: Neck is soft and supple. No significant lymphadenopathy is noted. Oropharynx is clear. Moist mucous membranes. Neck has full range of motion without eliciting any pain. EYES: The sclera were anicteric and conjunctiva were pink and moist. Extraocular movements were intact and pupils were equal round and reactive to light. Eyelids were unremarkable. SKIN: Skin is clear with no lesions or rashes and otherwise unremarkable. NEUROLOGIC: Patient is alert and oriented x3. Cranial nerves II through XII are grossly intact. Motor and sensory are also intact. Normal speech, volume and content. Symmetrical smile. MUSCULOSKELETAL: Calf is tender to palpation. There is no swelling of the ankle or redness of the ankle or leg LYMPHATICS: No significant lymphadenopathy is noted PSYCHIATRIC: Normal psychiatric evaluation. Limitations: no limitations Course Vital Signs 10/31/24 13:18 Temperature 99.1 F Pulse Rate 87 Respiratory 18 Rate Blood Pressure 194/92 O2 Sat by Pulse 97 Oximetry Medical Decision Making - Medical Decision Making Was pt. sent in by a medical professional or institution ([facility], [employer], urgent care, hospital, or senior living...) When possible be specific @ -[No] Did you speak to anyone other than the patient for history (EMS, parent, family, police, friend...)? What history was obtained from this source @ -[No] Did you review nursing and triage notes (agree or disagree)? Why? @ -[I reviewed and agree with nursing and triage notes] Were old charts reviewed (outside hosp., previous admission, EMS record, old EKG, old radiological studies, urgent care reports/EKG's, senior living records)? Report findings @ -[No old charts were reviewed] Differential Diagnosis? @ -DVT, PAD, cellulitis, sarcoma, fracture, this is not an all-inclusive list EKG interpreted by me (3pts min.). @ -[As above] X-rays interpreted by me (1pt min.). @ -[None done] CT interpreted by me (1pt min.). @ -[None done] U/S interpreted by me (1pt. min.). @ -Ultrasound showed no DVT What testing was considered but not performed or refused? (CT, X-rays, U/S, labs)? Why? @ -[None] What meds were considered but not given or refused? Why? @ -[None] Did you discuss the management of the patient with other professionals (professionals i.e. [facility], [employer], lab, RT, psych nurse, oncology social work, assessment services manager, teacher, chief credit officer, case loader operator)? Give summary @ -[No] Was smoking cessation discussed for >3mins.? @ -[No] Was critical care preformed (if so, how long)? @ -[No] Were there social determinants of health that impacted care today? How? (Homelessness, low income, unemployed, alcoholism, drug addiction, transportation, low edu. Level, literacy, decrease access to med. care, nursing home, rehab)? @ -[No] Was there de-escalation of care discussed even if they declined (Discuss DNR or withdrawal of care, Hospice)? DNR status @ -[No] What co-morbidities impacted this encounter? (DM, HTN, Smoking, COPD, CAD, Cancer, CVA, ARF, Chemo, Hep., AIDS, mental health diagnosis, sleep apnea, morbid obesity)? @ -[None] Was patient admitted / discharged? Hospital course, mention meds given and route, prescriptions, significant lab abnormalities, going to OR and other pertinent info. @ -Patient's symptoms are classic for PAD so patient will follow-up with vascular surgery. Undiagnosed new problem with uncertain prognosis? @ -[No] Drug Therapy requiring intensive monitoring for toxicity (Heparin, Nitro, Insulin, Cardizem)? @ -[No] Were any procedures done? @ -[No] Diagnosis/symptom? @ -Claudication Acute, or Chronic, or Acute on Chronic? @ -Acute Uncomplicated (without systemic symptoms) or Complicated (systemic symptoms)? @ -Uncomplicated Side effects of treatment? @ -[No] Exacerbation, Progression, or Severe Exacerbation? @ -[No] Poses a threat to life or bodily function? How? (Chest pain, USA, NM, pneumonia, PE, COPD, DKA, ARF, appy, cholecystitis, CVA, Diverticulitis, Homicidal, Suicidal, threat to staff... and all critical care pts) @ -[No] Disposition Clinical Impression: Claudication, PAD (peripheral artery disease) Disposition: HOME SELF-CARE Additional Instructions: Patient needs to follow-up with Dr. Isabella wilson Is patient prescribed a controlled substance at d/c from ED?: No Referrals: Seven Hernandez MD [Primary Care Provider] - 1-2 days Bing Ventura DO [STAFF PHYSICIAN] - 1-2 days Time of Disposition: 15:34
--- NOTE | 2024-10-31 15:19 | US ---
EXAMINATION TYPE: US venous doppler duplex LE RT DATE OF EXAM: 10/31/2024 2:14 PM COMPARISON: NONE CLINICAL INDICATION: Male, 54 years old with history of Calf pain; Pain, Pain TECHNIQUE: The lower extremity deep venous system is examined utilizing real time linear array sonog angella with graded compression, color doppler sonography, and spectral doppler. SIDE PERFORMED: Right FINDINGS: VESSELS IMAGED: Common Femoral Vein Deep Femoral Vein Greater Saphenous Vein * Femoral Vein Popliteal Vein Small Saphenous Vein * Proximal Calf Veins (* superficial vessels) Right Leg: Negative for DVT, Color Doppler imaging shows patency of the vessels. Spectral waveforms are within normal limits. IMPRESSION: 1. Right lower extremity ultrasound negative for deep venous thrombosis. [facility], , 10/31/2024 3:17 PM
[2024-10-31 16:03] VITALS: BP 154/81; PULSE 60; TEMP 98.9
== END 2024-10-31 16:03 | disposition home or self-care (01) ==
LOC: EC 12:48
DX: I73.9 Peripheral vascular disease, unspecified (principal); F17.290 Nicotine dependence, other tobacco product, uncomplicated
CPT/HCPCS: 99283

== ENCOUNTER → 2024-12-03 | Outpatient (CLI) | payer BC ==
[2024-12-03 15:43] LABS: African American GFR (CKD) 82 (>60 ml/min/1.73 sqM); Blood Urea Nitrogen 19 mg/dL (9-20); Non-African American GFR(CKD) 71 (>60 ml/min/1.73 sqM)
--- NOTE | 2024-12-04 15:07 | CT ---
EXAMINATION TYPE: CT angio abd aorta w/Runoff CT DLP: 3792.1 mGycm, Automated exposure control for dose reduction was used. DATE OF EXAM: 12/03/2024 5:38 PM COMPARISON: CT chest 10/04/2021. CLINICAL INDICATION:Male, 54 years old with history of I70.213 ATHSCL [place] ARTERIES OF EXTRM W INTR MT C; leg pain TECHNIQUE: Multiple thin slice sub-millimeter images were obtained through the abdomen, pelvis, and l ower extremities after administration of contrast. Patient was given Isovue 370, 100 cc intravenousl y. 3-D reconstructed images and maximum intensity projection images were obtained of the abdomen, pe lvis, and lower extremities. FINDINGS: CTA Abdomen and pelvis: Mid abdominal aortic fusiform aneurysm measuring 3.6 x 3.6 cm. Mild atheroscl erotic sclerotic plaquing is identified within the abdominal aorta. The origins of the superior mese nteric artery, renal arteries, inferior mesenteric artery, and celiac axis are patent. Normal morphol ogy of the right common iliac artery. Mild aneurysmal fusiform dilatation of the left common iliac ar trevin measuring up to 1.7 cm. Mild atherosclerotic plaque within both iliac arteries extending into th e internal/external iliac arteries which are patent without significant stenosis. CTA Lower extremities: Right: The common femoral is patent. There is short segment occlusion of the mid superficial femoral artery secondary to calcified and noncalcified plaque. Distal reconstitution demonstrated with occlus ion of the distal superficial femoral artery before the popliteal artery. Fusiform aneurysmal dilatat ion of the popliteal artery measuring 1.7 x 2.1 cm with near complete mural thrombus. There is distal reconstitution below this within the popliteal artery with high-grade stenosis secondary to noncalci fied plaque. The remaining distal popliteal artery is widely patent. The tibioperoneal trunk is widel y patent. Anterior and posterior tibial arteries as well as the peroneal artery are patent. Anterior and posterior tibial arteries cross the ankle. Left: The common femoral is patent. The superficial femoral artery is occluded at its origin. There i s long segment occlusion with short segment and distal reconstitution with subsequent occlusion to th e popliteal artery. The popliteal artery is widely patent. Anterior and posterior tibial arteries as well as the peroneal artery are patent. Anterior and posterior tibial arteries cross the ankle. VISCERA: The liver, spleen, adrenal glands, kidneys, pancreas, and gallbladder are not optimally enha nced due the arterial phase utilized. LIVER: Unremarkable GALLBLADDER AND BILE DUCTS: Unremarkable. PANCREAS: Unremarkable. SPLEEN: Unremarkable. ADRENAL GLANDS: Unremarkable. KIDNEYS AND URETERS: No evidence of hydronephrosis or renal calculus. Stable left renal upper pole p artially exophytic 2.3 cm hyperdense cyst. Consistent with a proteinaceous/hemorrhagic cyst. No follo w up recommended. PELVIS BLADDER: Unremarkable REPRODUCTIVE: Unremarkable. ABDOMEN & PELVIS STOMACH AND BOWEL: Stomach and duodenum are unremarkable. Sigmoid diverticulosis without evidence for acute diverticulitis. The appendix is within normal limits. No evidence of bowel obstruction. PERITONEUM: No evidence of pneumoperitoneum or free fluid. MUSCULOSKELETAL: No acute osseous abnormalities. Multilevel anterior osteophytosis of the visualized lower thoracic spine. Degenerative changes of the pubic symphysis. LYMPH NODES: No gross evidence for lymphadenopathy. SOFT TISSUE/ABDOMINAL WALL: Unremarkable LOWER CHEST: Redemonstration of focal weakening along the right lateral eighth intercostal space with mild lung bulging/hernia. There is some adjacent atelectasis/scarring now demonstrated. Coronary art lashon calcifications along the circumflex. IMPRESSION: 1. Mid abdominal aortic fusiform aneurysm measuring 3.6 cm with mild aneurysmal fusiform dilatation of the left common iliac artery measuring up to 1.7 cm. 2. Atherosclerotic disease involving abdominal aorta and lower extremity vasculature. Regions of occ lusion involving the bilateral superficial femoral arteries with left greater than right. Distal nola nstitution demonstrated. 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 Distal reconstitution with high-grade stenosis of the right po pliteal artery distally. 3. At least two vessels are seen crossing each ankle joint. 4. Sigmoid diverticulosis without evidence for acute diverticulitis. [facility], , 12/04/2024 3:05 PM
== END | disposition home or self-care (01) ==
LOC: RADCTMAIN 14:57
PROVIDERS: ATTEND Surgery
DX: I70.213 Atherosclerosis of native arteries of extremities with intermittent claudication, bilateral legs (principal); I70.0 Atherosclerosis of aorta; K57.30 Diverticulosis of large intestine without perforation or abscess without bleeding; I72.4 Aneurysm of artery of lower extremity
CPT/HCPCS: 82565; 84520; 75635; 36415; Q9967